=== PATIENT | female | born 1955 | race Caucasian/White ===

== ENCOUNTER → 2016-11-04 | Outpatient (CLI) | payer BC ==
[2016-11-04 16:06] VITALS: BP 144/81; PULSE 91; TEMP 98.2; BMI 33.8
--- NOTE | 2016-11-04 16:27 | P.BASOAP ---
Subjective Principal diagnosis: Malfunctioning LAP-BAND Patient was in [place] for the winter. She returns now to discuss and schedule sleeve gastrectomy. She has had weight gain. No heartburn. Her vomiting. Objective - Vital Signs Vital signs: Vital Signs Temp 98.2 F 11/04/16 16:00 Pulse 91 11/04/16 16:00 Resp BP 144/81 11/04/16 16:00 Pulse Ox Intake & Output 11/03/16 11/04/16 11/04/16 18:59 06:59 18:59 Weight 101.015 kg - Exam Abdomen: Soft, nontender, nondistended Assessment/Plan (1) Morbid obesity Narrative/Plan: Patient with a malfunctioning LAP-BAND system. The patient's preoperative consent form for sleeve gastrectomy was reviewed in detail. The patient will be set up for an upcoming upper endoscopy and dietary evaluation. We'll schedule sleeve gastrectomy to follow. Plan: Date: 11/04/16 Initial Weight: 119.295 kg Initial BMI: 39.9 Current Weight: 101.015 kg Current BMI: 33.8 Type of Surgery: Total Volume in Band: 0 Previous Volume: Volume Removed: Volume Added: Band Size:
== END | disposition home or self-care (01) ==
LOC: BARWHC3 14:18
PROVIDERS: ATTEND Surgery
DX: E66.01 Morbid (severe) obesity due to excess calories (principal); K95.09 Other complications of gastric band procedure
CPT/HCPCS: 99211

== ENCOUNTER → 2016-11-10 | Outpatient (CLI) | payer BC ==
[2016-11-10 12:30] VITALS: BMI 33.3
== END | disposition home or self-care (01) ==
LOC: BARWHC3 08:52
PROVIDERS: ATTEND Surgery
DX: E66.01 Morbid (severe) obesity due to excess calories (principal); Z71.3 Dietary counseling and surveillance
CPT/HCPCS: 97804

== ENCOUNTER 2016-11-21 08:26 | Day surgery (SDC) | payer BC ==
[2016-11-19 10:44] VITALS: BMI 32.6
[~2016-11-21 08:26] MED LIST: LACTATED RINGERS 1,000 ML IV SCH
[2016-11-21 08:56] VITALS: TEMP 98.5
[2016-11-21 08:56] LABS: Glucose,Whole Blood 172 mg/dL (75-99)
[2016-11-21] MEDS ORDERED: LIDOCAINE 1% 20 ML VIAL (10MG/ML) FOR IV START INTRADERMA ONE (08:57)
[2016-11-21] MEDS ORDERED: PROPOFOL 10 MG/ML 20 ML VIAL IV ONE (09:16)
--- NOTE | 2016-11-21 09:21 | P.GSHP ---
History of Present Illness H&P Date: 11/21/16 Chief Complaint: GERD, presurgical Patient is well-known to our service. She has a history of previous lap band placement. At the time of her most recent band adjustment the fluid present suggested the presence of a leak from the port. Patient has had progressive weight gain. She describes reflux and vomiting particularly with lap band adjustment. She is tentatively being scheduled for upcoming sleeve gastrectomy. Past Medical History Past Medical History: Diabetes Mellitus History of Any Multi-Drug Resistant Organisms: None Reported Past Surgical History: Bariatric Surgery, Section, Cholecystectomy, Hysterectomy, Orthopedic Surgery Additional Past Surgical History / Comment(s): Left total knee replacement, tailbone removed, lap band, panniculectomy, right hand basal joint surgery Past Anesthesia/Blood Transfusion Reactions: No Reported Reaction Smoking Status: Former smoker - Past Family History Mother Family Medical History: Coronary Artery Disease (CAD), Dementia, Diabetes Mellitus Additional Family Medical History / Comment(s): at age 77 Father Family Medical History: Dementia, Neurologic Disorder Additional Family Medical History / Comment(s): parkinsons. at age 82 Medications and Allergies Home Medications Medication Instructions Recorded Confirmed Type ALPRAZolam [Xanax] 0.5 mg PO DAILY PRN 02/05/16 11/21/16 History Cholecalciferol (Vitamin D3) 5,000 unit PO DAILY 02/05/16 11/21/16 History [Vitamin D3] Zolpidem Tartrate [Ambien] 5 mg PO HS PRN 02/05/16 11/21/16 History DULoxetine HCL [Cymbalta] 1 tab PO BID 11/06/16 11/21/16 History metFORMIN HCL 1,000 mg PO BID 11/19/16 11/21/16 History Allergies Allergy/AdvReac Type Severity Reaction Status Date / Time sertraline HCl [From Zoloft] AdvReac Nausea & Verified 11/21/16 08:49 Vomiting & Diarrhea Surgical - Exam Vital Signs Temp Pulse Resp BP Pulse Ox 98.5 F 96 16 150/88 96 11/21/16 08:53 11/21/16 08:53 11/21/16 08:53 11/21/16 08:53 11/21/16 08:53 Physical exam: General: Well-developed, well-nourished HEENT: Normocephalic, sclerae nonicteric Abdomen: Nontender, nondistended Extremities: No edema Neuro: Alert and oriented Results - Labs Abnormal Lab Results - Last 24 Hours (Table) 11/21/16 Range/Units 08:55 POC Glucose (mg/dL) 172 H (75-99) mg/dL Assessment and Plan (1) Morbid obesity Narrative/Plan: Will proceed with upper endoscopy at this time. Status: Acute
--- NOTE | 2016-11-21 09:32 | P.PCN ---
Date of Procedure: 11/21/16 Preoperative Diagnosis: Postoperative Diagnosis: Procedure(s) Performed: Preoperative Dx: GERD, presurgical Postoperative Dx: Gastritis, distal esophagitis Procedure: EGD with Bx Anesthesia: Sedation Endoscopist: Dr. Pena Specimens: Antrum, distal esophagus Endoscopic Procedure: The patient was on the endoscopy table in the left decubitus position. The Olympus gastroscope was inserted into the oropharynx and passed under direct visualization to the region of the third portion of the duodenum. From that point the scope was slowly withdrawn inspecting all surfaces carefully. There were no neoplastic inflammatory or polypoid lesions throughout the duodenum. The pylorus was widely patent. The stomach was carefully inspected. There was and out gastritis present. A biopsy of the antrum took place to rule out H. pylori. Retroflexion revealed a normal band plication. No erosion was seen. There was mild distal esophagitis identified. Initially it appeared there may be a short segment Iglesias's esophagus however this appeared to be less than 1 cm in length. A biopsy of the distal esophagus took place. The remainder the esophagus appear normal. The patient was then taken to the recovery room in stable condition per anesthesia guidelines. Recommendations: Await biopsy results. Will proceed with upcoming band removal and sleeve gastrectomy. Implants: Indications for Procedure: Operative Findings: Description of Procedure:
[2016-11-21 09:47] VITALS: BP 137/81; PULSE 82; RESP 18
[2016-11-21 09:50] LABS: Glucose,Whole Blood 160 mg/dL (75-99)
== END 2016-11-21 10:21 | disposition home or self-care (01) ==
LOC: ORWHC2ENDO 08:26
PROVIDERS: ATTEND Surgery
DX: Z01.818 Encounter for other preprocedural examination (principal); K29.50 Unspecified chronic gastritis without bleeding; K20.9 Esophagitis, unspecified; Z98.84 Bariatric surgery status; E11.9 Type 2 diabetes mellitus without complications; Z79.84 Long term (current) use of oral hypoglycemic drugs; Z87.891 Personal history of nicotine dependence; Z79.899 Other long term (current) drug therapy; Z88.8 Allergy status to other drugs, medicaments and biological substances
CPT/HCPCS: 88305; 88342; 43239; J2704

== ENCOUNTER → 2016-12-12 | Outpatient (CLI) | payer BC ==
[2016-12-12 08:46] LABS: Basophils % (A) 1 %; CH 31.2; CHCM 34.4; Eosinophils # (A) 0.2 k/uL (0-0.7); Eosinophils % (A) 3 %; Glucose 155 mg/dL (74-99); HCT 45.6 % (34.0-46.0); HDW 2.45; HGB 15.1 gm/dL (11.4-16.0); Luc # (Auto) 0.12; Luc % (Auto) 2; Lymphocytes # (A) 1.6 k/uL (1.0-4.8); Lymphocytes % (A) 21 %; MCH 30.2 pg (25.0-35.0); MCHC 33.2 g/dL (31.0-37.0); Mean Platelet Volume 6.5; Monocytes # (A) 0.5 k/uL (0-1.0); Monocytes % (A) 6 %; Neutrophils # (A) 5.3 k/uL (1.3-7.7); Neutrophils % (A) 68 %; RBC 5.01 m/uL (3.80-5.40); RDW 13.2 % (11.5-15.5); WBC 7.7 k/uL (3.8-10.6); WBC (Perox) 7.65
[2016-12-12 08:47] LABS: ALT 35 U/L (9-52); AST 26 U/L (14-36); Alkaline Phosphatase 82 U/L (38-126); Anion Gap 11 mmol/L; Blood Urea Nitrogen 17 mg/dL (7-17); Calcium 9.5 mg/dL (8.4-10.2); Carbon Dioxide 27 mmol/L (22-30); Chloride 102 mmol/L (98-107); Non-African American GFR(MDRD) >60 (>60 ml/min/1.73 sqM); Potassium 4.5 mmol/L (3.5-5.1); Sodium 140 mmol/L (137-145); Total Bilirubin 0.5 mg/dL (0.2-1.3); Total Protein 7.3 g/dL (6.3-8.2)
== END | disposition home or self-care (01) ==
LOC: LABPAT 08:08
PROVIDERS: ATTEND Surgery
DX: Z01.812 Encounter for preprocedural laboratory examination (principal)
CPT/HCPCS: 80053; 85025

== ENCOUNTER 2016-12-22 10:29 | Inpatient (IN) | payer BC ==
[~2016-12-22 10:29] MED LIST changes: +DEXAMETHASONE SOD PHOSPHATE 10 MG/ML 1 ML VIAL IV ONE; +ENOXAPARIN 40 MG/0.4 ML SYRINGE SQ ONE; +HYDROmorphone 1 MG/ML 1 ML SYRINGE IVP PRN; -LACTATED RINGERS 1,000 ML IV SCH; +MIDAZOLAM 2 MG/2 ML VIAL IV PRN; +ONDANSETRON 4 MG/2 ML VIAL IVP ONE; +SCOPOLAMINE 1.5MG/72HR PATCH TRANSDERM ONE; +ceFAZolin 2 GM in SODIUM CHLORIDE 0.9% 100 ML IVPB ONE
[2016-12-22] MEDS ORDERED: METHYLENE BLUE 30 MG in DEXTROSE 5% IN WATER 500 ML IRRIGATION ONE ×2 (10:49)
[2016-12-22 11:01] LABS: Glucose,Whole Blood 148 mg/dL (75-99)
[2016-12-22] MEDS: LACTATED RINGERS 1,000 ML IV SCH (11:01)
[2016-12-22] MEDS ORDERED: LIDOCAINE 1% 20 ML VIAL (10MG/ML) FOR IV START INTRADERMA ONE (11:01)
--- NOTE | 2016-12-22 11:22 | P.GSHP ---
History of Present Illness H&P Date: 12/22/16 Chief Complaint: Morbid obesity, malfunctioning LAP-BAND system Patient is well known to our service. Patient underwent initial laparoscopic banding in February 2002. Since that time the patient has had a port replacement because of a leaking LAP-BAND port. Recently at the time of a elective surgery her band was emptied and there was very little fluid in her band and the fluid had a straw-colored appearance. We suspected that the patient had another leak from her LAP-BAND port system. The patient reportedly has had weight gain and accompanying this. The patient and I have discussed the options and decided to proceed with LAP-BAND conversion to sleeve gastrectomy. The patient is not interested in gastric bypass. She has had intermittent reflux. She had a recent upper endoscopy performed showing gastritis and distal esophagitis. She has a history of previous abdominoplasty with mesh placement. Past Medical History Past Medical History: Diabetes Mellitus, Fibromyalgia Additional Past Medical History / Comment(s): varicose vein, hx pancreatitis History of Any Multi-Drug Resistant Organisms: None Reported Past Surgical History: Bariatric Surgery, Section, Cholecystectomy, Hernia Repair, Hysterectomy, Joint Replacement, Orthopedic Surgery Additional Past Surgical History / Comment(s): Left total knee replacement, tailbone removed, lap band, panniculectomy, rt hand joint surgery for basal joint disease, oophorectomy, lap band port replacement, EGD Past Anesthesia/Blood Transfusion Reactions: No Reported Reaction, Family History of Problems w/ Anesthesia Additional Past Anesthesia/Blood Transfusion Reaction / Comment(s): sister- severe PONV Smoking Status: Former smoker - Past Family History Mother Family Medical History: Coronary Artery Disease (CAD), Dementia, Diabetes Mellitus Additional Family Medical History / Comment(s): at age 77 Father Family Medical History: Dementia, Neurologic Disorder Additional Family Medical History / Comment(s): parkinsons. at age 82 Brother(s) Family Medical History: Cancer Medications and Allergies Home Medications Medication Instructions Recorded Confirmed Type ALPRAZolam [Xanax] 0.5 mg PO DAILY PRN 02/05/16 12/22/16 History Cholecalciferol (Vitamin D3) 5,000 unit PO DAILY 02/05/16 12/11/16 History [Vitamin D3] Zolpidem Tartrate [Ambien] 5 mg PO HS PRN 02/05/16 12/22/16 History DULoxetine HCL [Cymbalta] 1 tab PO BID 11/06/16 12/22/16 History metFORMIN HCL 1,000 mg PO BID 11/19/16 12/22/16 History Multivitamins, Thera [Multivitamin 1 tab PO DAILY 12/11/16 12/11/16 History (formulary)] Allergies Allergy/AdvReac Type Severity Reaction Status Date / Time No Known Allergies Allergy Verified 12/11/16 11:34 Surgical - Exam Vital Signs Temp Pulse Resp BP Pulse Ox 98.4 F 112 H 18 133/89 97 12/22/16 10:46 12/22/16 10:46 12/22/16 10:46 12/22/16 10:46 12/22/16 10:46 Physical exam: General: Well-developed, well-nourished HEENT: Normocephalic, sclerae nonicteric Abdomen: Nontender, nondistended Extremities: No edema Neuro: Alert and oriented Results - Labs Abnormal Lab Results - Last 24 Hours (Table) 12/22/16 Range/Units 10:57 POC Glucose (mg/dL) 148 H (75-99) mg/dL Assessment and Plan (1) Morbid obesity Narrative/Plan: Will proceed with lap band removal and conversion to sleeve gastrectomy at this time. Risks of bleeding, infection, stricture formation, nausea, vomiting, leak , abscess, peritonitis, fistula formation, poor weight loss, chronic reflux, mesh infection, DVT, PE, [place], and were discussed. She understands and wishes to proceed. Status: Acute
[2016-12-22] MEDS ORDERED: SUCCINYLCHOLINE CHLORIDE 100 MG/5 ML SYR IV ONE (11:36)
[2016-12-22] MEDS ORDERED: NEOSTIGMINE 1 MG/ML 10 ML VIAL ONE (11:36)
[2016-12-22] MEDS ORDERED: ROCURONIUM BROMIDE 10 MG/ML 10 ML VIAL IV ONE (11:36)
[2016-12-22] MEDS ORDERED: MIDAZOLAM 2 MG/2 ML VIAL ONE (11:36)
[2016-12-22] MEDS ORDERED: PHENYLEPHRINE-0.9% NACL SYG 1 MG/10 ML SYRINGE ONE (11:36)
[2016-12-22] MEDS ORDERED: LIDOCAINE 1% INJ 10MG/ML (20 ML MDV) ONE (11:36)
[2016-12-22] MEDS ORDERED: PROPOFOL 10 MG/ML 20 ML VIAL IV ONE (11:36)
[2016-12-22] MEDS ORDERED: fentaNYL (PF) 50 MCG/ML 2 ML AMP ONE (11:36)
[2016-12-22] MEDS ORDERED: GLYCOPYRROLATE 0.2 MG/ML 2 ML VIAL ONE (11:36)
[2016-12-22] MEDS ORDERED: BUPIVACAINE (PF) 0.25% 30 ML VIAL SQ ONE ×2 (12:15)
[2016-12-22] MEDS ORDERED: LACTATED RINGERS 1,000 ML IV ONE (13:00)
[2016-12-22] MEDS ORDERED: diphenhydrAMINE 50 MG/ML 1 ML VIAL IVP PRN (14:55)
[2016-12-22] MEDS ORDERED: HYDROmorphone 1 MG/ML 1 ML SYRINGE IVP PRN (14:55)
[2016-12-22] MEDS ORDERED: HYOSCYAMINE ORAL DROPS 1.875 MG/15 ML BOTTLE PO PRN (14:55)
[2016-12-22] MEDS ORDERED: SIMETHICONE 40 MG/0.6 ML DROPS 2,000 MG/30 ML BOTTLE PO PRN (14:55)
[2016-12-22] MEDS ORDERED: ONDANSETRON 4 MG/2 ML VIAL IVP PRN (14:55)
[2016-12-22] MEDS ORDERED: NALOXONE 0.4 MG/ML 1 ML VIAL IV PRN (14:55)
[2016-12-22] MEDS ORDERED: ACETAMINOPHEN IV (For NPO) 1,000 MG in EMPTY BAG 1 BAG IVPB ONE (14:55)
--- NOTE | 2016-12-22 15:07 | P.OP ---
Date of Procedure: 12/22/16 Preoperative Diagnosis: Postoperative Diagnosis: Procedure(s) Performed: PREOPERATIVE DIAGNOSIS: Morbid obesity, GERD, malfunctioning LAP-BAND port POSTOPERATIVE DIAGNOSIS: Same PROCEDURE: Laparoscopic sleeve gastrectomy with lysis of adhesions and lap band removal SURGEON: Becky MONTIELL: Minimal ANESTHESIA: General COMPLICATIONS: None OPERATIVE PROCEDURE: Patient was placed in the operating table in the supine position. She was placed under general anesthesia at that time. The abdomen was prepped and draped in sterile fashion after the patient was placed in lithotomy. The patient's previous lap band port incision was localized with quarter percent Marcaine. The previous incision was opened and the subcutaneous tissues were divided using electrocautery. The patient's port was easily removed. There was noted to be a slitlike hole within the tubing of the lap band port consistent with the suspected findings of a leaking system. The remaining tubing was reduced back into the perineal cavity. Through that same opening a 5 mm optical trocar was used and insufflation took place. The patient had a large amount of adhesions between the abdominal fat and the abdominal wall. This was lysed somewhat painstakingly using a combination of blunt dissection and the LigaSure device. In doing so I was able to find room to place an additional right subxiphoid 5 mm trocar, a right upper quadrant 5 mm trocar, a left upper quadrant 5 mm trocar, and a supraumbilical 15 mm trocar. All trochars were placed after localization with Marcaine and under direct visualization. The adhesions around the buckle of the band were lysed using a combination of sharp dissection and cautery. The previous plication was divided mostly sharply. The hiatus was inspected. I was not able to identify a hiatal hernia. At that point I moved to the mid aspect of the greater curvature the stomach. The short gastric vasculature was divided using a LigaSure device proximally. I then switched and divided the short gastrics distally to a 3-4 cm from the pylorus. The dissection took place up to the left diaphragmatic crura at that point. The posterior short gastrics were likewise divided using the LigaSure device. The posterior lateral aspect of the band plication was divided using sharp dissection. Once the stomach was fully mobilized the blunt tipped 40-Romansh bougie dilator was advanced into the stomach and advanced all the way to the prepyloric location. A black echelon 60 stapler was utilized and fired tangentially across the antrum taking care to avoid narrowing at the incisura angularis. The first stapling took place without seen guard. The second stapler utilized was a black load with seam guard. Next a total of 3 green echelon 60 staplers with seam guard took place proximally staying on the outer edge of our dilator. The oral gastric tube was reinserted. The stomach was insufflated with approximately 100 mL of methylene blue. No evidence of leak or obstruction was seen. The Tisseel fibrin glue was utilized however the Tisseel was noted to be leaking from the adapter at the syringe location and despite attempts at repositioning the syringe we did not have any significant volume of Tisseel left to use along the staple line. I did not feel it was appropriate to wait additional time for the Tisseel to thaw to try a second attempt. The stomach remnant was removed from the 15 mm trocar site without difficulty. The fascia at the 15 millimeters site was closed using a 0 Vicryl [id number] suture. The initial 5 mm trocar site where the port had been was also closed using a [id number] 0 Vicryl stitch. The insufflation was evacuated. The skin at all 5 incisions were closed using 4-0 Monocryl sutures. Steri-Strips and sterile dressings were then applied. DISPOSITION: Stable to recovery room Implants: Indications for Procedure: Operative Findings: Description of Procedure:
[2016-12-22 16:02] LABS: Glucose,Whole Blood 204 mg/dL (75-99)
[2016-12-22] MEDS: ALBUTEROL NEBULIZED 2.5 MG/3 ML INHALATION SCH ×3 (16:18→20:49)
[2016-12-22] MEDS: 0.9% NACL WITH KCL 20 MEQ/L 1,000 ML IV SCH ×2 (16:27→23:07)
[2016-12-22 18:03] LABS: Glucose,Whole Blood 191 mg/dL (75-99)
[2016-12-22] MEDS: INSULIN LISPRO (humaLOG) 300 UNIT/3 ML VIAL SQ SCH ×2 (18:04→21:22)
[2016-12-22 20:03] LABS: Glucose,Whole Blood 147 mg/dL (75-99)
[2016-12-23 07:05] LABS: Glucose,Whole Blood 115 mg/dL (75-99)
[2016-12-23] MEDS: 0.9% NACL WITH KCL 20 MEQ/L 1,000 ML IV SCH (07:18)
[2016-12-23] MEDS: LACTATED RINGERS 1,000 ML IV SCH (07:18)
[2016-12-23] MEDS: ALBUTEROL NEBULIZED 2.5 MG/3 ML INHALATION SCH ×4 (07:40→19:51)
[2016-12-23 07:43] LABS: Anion Gap 6 mmol/L; Blood Urea Nitrogen 9 mg/dL (7-17); Calcium 8.1 mg/dL (8.4-10.2); Carbon Dioxide 25 mmol/L (22-30); Chloride 107 mmol/L (98-107); Magnesium 1.6 mg/dL (1.6-2.3); Non-African American GFR(MDRD) >60 (>60 ml/min/1.73 sqM); Potassium 4.3 mmol/L (3.5-5.1); Sodium 138 mmol/L (137-145)
[2016-12-23 08:01] LABS: Basophils % (A) 0 %; CH 30.8; CHCM 34.2; Eosinophils % (A) 1 %; HCT 38.4 % (34.0-46.0); HDW 2.42; HGB 13.2 gm/dL (11.4-16.0); Luc # (Auto) 0.11; Luc % (Auto) 1; Lymphocytes % (A) 11 %; MCH 30.9 pg (25.0-35.0); MCHC 34.3 g/dL (31.0-37.0); MCV 90.3 fL (80.0-100.0); Mean Platelet Volume 6.4; Monocytes # (A) 0.6 k/uL (0-1.0); Monocytes % (A) 7 %; Neutrophils # (A) 7.2 k/uL (1.3-7.7); Neutrophils % (A) 81 %; RBC 4.26 m/uL (3.80-5.40); RDW 12.7 % (11.5-15.5); WBC 8.9 k/uL (3.8-10.6); WBC (Perox) 9.26
[2016-12-23] MEDS: INSULIN LISPRO (humaLOG) 300 UNIT/3 ML VIAL SQ SCH ×4 (08:21→21:19)
[2016-12-23] MEDS: ESOMEPRAZOLE 20 MG in SODIUM CHLORIDE 0.9% 50 ML IVPB SCH (08:41)
[2016-12-23] MEDS: ENOXAPARIN 40 MG/0.4 ML SYRINGE SQ SCH ×2 (08:41→23:43)
[2016-12-23] MEDS: 1: MVI, ADULT NO.4 WITH VIT K 10 ML, THIAMINE 100 MG, FOLIC ACID 1 MG, POTASSIUM CHLORID IV SCH ×12 (08:41→19:55)
[2016-12-23] MEDS ORDERED: SODIUM CHLORIDE 0.9% 1,000 ML BAG ONE (08:41)
--- NOTE | 2016-12-23 08:46 | FL ---
EXAMINATION TYPE: FL UGI DATE OF EXAM: 12/23/2016 LIMITED UGI: CLINICAL HISTORY: Morbid Obesity, history of lap band 15 years ago converted to gastric sleeve yeste rday. TECHNIQUE: Limited esophagram is performed utilizing 25 oz of Omnipaque 350. A total of 52 seconds o f fluoroscopic time was utilized during procedure. COMPARISON: None. FINDINGS: The patient swallowed contrast without difficulty or delay. Esophageal peristalsis and mo tility are satisfactory. There is good flow across diaphragmatic hiatus into proximal stomach with m inimal delay at proximal sleeve at proximal anastomosis. There is mild delay in flow through gastric sleeve into duodenal sweep at distal anastomosis. Some contrast refluxes into distal esophagus. Patie nt remains asymptomatic. There is no evidence of contrast extravasation to suggest leak. Cholecystect pamela clips are incidentally noted. IMPRESSION: No evidence of leak or significant obstruction status post gastric sleeve conversion surg cheo yesterday.
[2016-12-23] MEDS: KETOROLAC 30 MG/ML 1 ML VIAL IVP SCH ×3 (11:30→23:43)
[2016-12-23 11:44] LABS: Glucose,Whole Blood 144 mg/dL (75-99)
[2016-12-23 11:52] LABS: Hemoglobin A1C 6.8 % (4.2-6.1)
--- NOTE | 2016-12-23 12:45 | P.PN ---
Subjective Principal diagnosis: Morbid obesity Ascending well today. She complains of feeling somewhat shaky. Pain is improving. No nausea or vomiting. She is tolerating her liquids at this point. Upper GI shows no evidence of leak or obstruction. White blood cell count is normal. Objective - Vital Signs Vital signs: Vital Signs Temp 98.1 F 12/23/16 07:00 Pulse 80 12/23/16 11:28 Resp 16 12/23/16 07:00 BP 130/80 12/23/16 07:00 Pulse Ox 97 12/23/16 11:17 Intake & Output 12/22/16 12/23/16 12/23/16 18:59 06:59 18:59 Intake Total 1900 1800 Output Total 20 Balance 1880 1800 Weight 92.9 kg Intake: IV 1900 Intake, IV Titration 1800 Amount 0.9% NaCl with KCl 20 Meq 1800 /l 1,000 ml @ 150 mls/hr IV .[id number] MAGDALENA Rx#: [id number] Output: Estimated Blood Loss 20 Other: Voiding Method Toilet - Exam Abdomen: Soft, minimal distention, minimal tenderness, incisions clean and dry - Labs CBC & Chem 7: 12/23/16 07:03 12/23/16 07:03 Labs: Abnormal Lab Results - Last 24 Hours (Table) 12/22/16 12/22/16 12/22/16 Range/Units 15:58 18:00 20:02 POC Glucose (mg/dL) 204 H 191 H 147 H (75-99) mg/dL Calcium (8.4-10.2) mg/dL 12/23/16 12/23/16 12/23/16 Range/Units 06:52 07:03 11:42 POC Glucose (mg/dL) 115 H 144 H (75-99) mg/dL Calcium 8.1 L (8.4-10.2) mg/dL Assessment and Plan (1) Morbid obesity Narrative/Plan: Continue bariatric clear liquid diet. Ambulate. Repeat labs tomorrow. Status: Acute
--- NOTE | 2016-12-23 13:12 | CONS ---
DATE OF CONSULTATION: 12/22/16 REASON FOR CONSULTATION: Medical management requested by Dr. Pena. CONSULTATION: This is a pleasant 61 -year-old patient of Dr. Brito who has undergone removal of lap band and sleeve gastrectomy. Post procedure, lying in bed, some discomfort. No nausea or vomiting. The patients chronic stable medical conditions include: Diabetes mellitus Type 2, fibromyalgia, varicose veins. REVIEW OF SYSTEMS: Constitutional: Tired. HEENT: None. Respiratory: None. Cardiovascular: none. Gastrointestinal: As above. : None. Musculoskeletal: None. Dermatology: None. Hematological: None . Lymphatics: None. Past history of diabetes mellitus, Type 2, fibromyalgia, varicose veins, pancreatitis. Past surgical history of lap band, cholecystectomy, hernia repair, left total knee replacement, lap band, panniculectomy, right hand joint surgery, oophorectomy. PSYCH HISTORY: History of anxiety. SOCIAL HISTORY: The patient smoked a pack a day for 40 years . Stopped ( ) 2014. No significant alcohol history. FAMILY HISTORY: Coronary artery disease, dementia, diabetes. Home medications: 1. Metformin 1000 mg po b.i.d. 2. Ambien 5 mg q.h.s. prn 3. Multivitamin tablet po daily. 4. Cymbalta 60 mg po b.i.d. 5. Vitamin D3 5000 units po daily. 6. Xanax 0.5 mg po daily prn. 7. Prilosec 20 mg breakfast. 8. [place] 5 one to two tablets q4h prn ALLERGIES: None. On examination, vital signs on presentation: Temperature 97. Pulse 92. Respiratory rate 16. Blood pressure 130/81. Pulse ox 98% on 2 L. GENERAL APPEARANCE: Well built. BMI 30.2, Lying in bed. Not in distress. HEENT: External appearance of nose, ears and oral cavity grossly normal. NECK: JVD not raised. Mass not palpable. RESPIRATORY: Effort increased. LUNGS: Slightly decreased breath sounds. CARDIOVASCULAR: First and second sounds normal. No edema. ABDOMEN: Mild tenderness. Soft. Liver and spleen not palpable. LYMPHATICS: No lymph nodes palpable in the neck and axillae. PSYCHIATRIC: Alert and oriented times three. Mood and affect normal. NEUROLOGICAL: Pupils equal. Cranial nerves grossly intact. Power and sensation grossly intact. INVESTIGATIONS: Accu-Cheks are noted. ASSESSMENT: 1. Obesity, BMI 30.2. 2. Status post lap band removal and sleeve gastrectomy. 3. Diabetes mellitus, Type 2, on oral hypoglycemic. 4. Fibromyalgia. 5. Varicose veins. 6. Primary osteoarthritis of multiple joints. 7. Depression, anxiety, not otherwise specified. 8. Chronic insomnia from medical problems. PLAN: The patient is getting IV fluids, Venodyne boots for DVT prophylaxis. The patient is NPO. We will keep a close eye on the patient. Care was discussed with the patient. Thank you Dr. Pena. SUKHJINDER
[2016-12-23] MEDS ORDERED: ALPRAZolam 0.5 MG TAB PO PRN (13:35)
[2016-12-23] MEDS: DULoxetine HCL 60 MG CAPSULE.DR PO SCH ×2 (14:47→21:18)
[2016-12-23 15:16] VITALS: BMI 30.2
--- NOTE | 2016-12-23 15:31 | PN ---
DATE OF SERVICE: 12/23/2016 PRESENTING COMPLAINT: Abdominal surgery. INTERVAL HISTORY: Patient is status post lab band removal and sleeve gastrectomy, some abdominal pain. Patient did tolerate some liquids this morning , did not pass any flatus. Feels a bit edgy, otherwise comfortable, smiling. Review of systems done for constitutional, cardiovascular, GI, pulmonary, relevant findings as above. Current medications are reviewed. On examination, temperature 98.1, pulse 93, respirations 16, blood pressure 130/ 80, pulse ox 99% on room air. GENERAL APPEARANCE: Lying in bed, comfortable. EYES: Pupils equal, conjunctivae normal. NECK: JVD, not raised, mass not palpable. RESPIRATORY: Effort normal. Lungs are clear. Cardiovascular first and second sounds, no edema. ABDOMEN: Mild tenderness, soft. Bowel sounds are sluggish. PSYCHIATRY: Alert and oriented x3, mood and affect, slightly anxious appearing. INVESTIGATIONS: White count 8.9, hemoglobin 13.2, potassium 4.3, Accu-Cheks are noted. ASSESSMENT: 1. Obesity, body mass index of 30.2. 2. Status post lap band removal and sleeve gastrectomy. 3. Diabetes mellitus type 2, on oral hypoglycemic. 4. Fibromyalgia, chronic. 5. Lower extremity varicose veins. 6. Primary osteoarthritis of multiple joints bilaterally. 7. Depression, anxiety, not otherwise specified. 8. Chronic insomnia from medical ( ). PLAN: Care was discussed with the patient and at the bedside, also with Dr. Pena. Patient's home medications will be resumed. Will hold off patient's oral hypoglycemic, especially metformin. Care was discussed. SUKHJINDER
[2016-12-23 16:51] LABS: Glucose,Whole Blood 131 mg/dL (75-99)
[2016-12-23 20:47] LABS: Glucose,Whole Blood 126 mg/dL (75-99)
[2016-12-23] MEDS ORDERED: ACETAMINOPHEN IV (For NPO) 1,000 MG in EMPTY BAG 1 BAG IVPB STA (20:48)
[2016-12-23] MEDS: ZOLPIDEM 5 MG TAB PO PRN (21:18)
[2016-12-24 06:54] LABS: Glucose,Whole Blood 108 mg/dL (75-99)
[2016-12-24 07:57] LABS: Anion Gap 8 mmol/L; Blood Urea Nitrogen 5 mg/dL (7-17); Calcium 8.3 mg/dL (8.4-10.2); Carbon Dioxide 27 mmol/L (22-30); Chloride 107 mmol/L (98-107); Glucose 104 mg/dL (74-99); Non-African American GFR(MDRD) >60 (>60 ml/min/1.73 sqM); Potassium 4.4 mmol/L (3.5-5.1); Sodium 142 mmol/L (137-145)
[2016-12-24 08:00] LABS: Basophils % (A) 1 %; CH 31.1; CHCM 33.7; Eosinophils # (A) 0.4 k/uL (0-0.7); Eosinophils % (A) 6 %; HCT 37.9 % (34.0-46.0); HDW 2.35; HGB 12.5 gm/dL (11.4-16.0); Luc # (Auto) 0.08; Luc % (Auto) 1; Lymphocytes # (A) 1.4 k/uL (1.0-4.8); Lymphocytes % (A) 22 %; MCH 30.6 pg (25.0-35.0); MCV 92.7 fL (80.0-100.0); Mean Platelet Volume 6.7; Monocytes # (A) 0.4 k/uL (0-1.0); Monocytes % (A) 7 %; Neutrophils % (A) 63 %; RBC 4.09 m/uL (3.80-5.40); RDW 13.4 % (11.5-15.5); WBC 6.3 k/uL (3.8-10.6); WBC (Perox) 6.43
[2016-12-24] MEDS: DULoxetine HCL 60 MG CAPSULE.DR PO SCH ×2 (08:17→22:26)
[2016-12-24] MEDS: INSULIN LISPRO (humaLOG) 300 UNIT/3 ML VIAL SQ SCH ×4 (08:17→22:40)
[2016-12-24] MEDS ORDERED: SODIUM CHLORIDE 0.9% 1,000 ML BAG ONE (08:17)
[2016-12-24] MEDS: ESOMEPRAZOLE 20 MG in SODIUM CHLORIDE 0.9% 50 ML IVPB SCH (08:17)
[2016-12-24] MEDS: ENOXAPARIN 40 MG/0.4 ML SYRINGE SQ SCH ×2 (08:17→22:26)
[2016-12-24] MEDS: 1: MVI, ADULT NO.4 WITH VIT K 10 ML, THIAMINE 100 MG, FOLIC ACID 1 MG, POTASSIUM CHLORID IV SCH ×12 (08:17→20:08)
[2016-12-24] MEDS: KETOROLAC 30 MG/ML 1 ML VIAL IVP SCH ×4 (08:18→23:57)
[2016-12-24] MEDS: LACTATED RINGERS 1,000 ML IV SCH (08:46)
[2016-12-24] MEDS: ALBUTEROL NEBULIZED 2.5 MG/3 ML INHALATION SCH ×4 (08:56→19:29)
[2016-12-24 11:14] LABS: Glucose,Whole Blood 113 mg/dL (75-99)
--- NOTE | 2016-12-24 11:45 | P.PN ---
Subjective Principal diagnosis: Morbid obesity Patient had a bad headache last night. Abdominal pain is improved. She is not drinking much. No dysphagia. White blood cell count today normal. Objective - Vital Signs Vital signs: Vital Signs Temp 98.4 F 12/24/16 07:00 Pulse 92 12/24/16 09:10 Resp 14 12/24/16 07:00 BP 138/74 12/24/16 07:00 Pulse Ox 94 L 12/24/16 07:00 Intake & Output 12/23/16 12/24/16 12/24/16 18:59 06:59 18:59 Intake Total 1021.2 1300 180 Balance 1021.2 1300 180 Weight 92.9 kg Intake: Intake, IV Titration 1021.2 1300 Amount 0.9% NaCl with KCl 20 Meq 1200 /l 1,000 ml @ 100 mls/hr IV .BY DURATION MAGDALENA Rx#: [id number] ACETAMINOPHEN IV (For NPO 100 ) 1,000 mg In Empty Bag 1 bag @ 400 mls/hr IVPB ONCE STA Rx#:[id number] Mvi, Adult No.4 with Vit 1021.2 K 10 ml Thiamine 100 mg Folic Acid 1 mg Potassium Chloride 20 meq In Sodium Chloride 0.9% 1, 000 ml @ 100 mls/hr IV . BY DURATION MAGDALENA Rx#: [id number] Oral 180 Other: Voiding Method Toilet # Voids 2 1 - Exam Abdomen: Soft, mild tenderness at incision sites, incisions clean and dry - Labs CBC & Chem 7: 12/24/16 07:19 12/24/16 07:19 Labs: Abnormal Lab Results - Last 24 Hours (Table) 12/23/16 12/23/16 12/23/16 Range/Units 07:03 11:42 16:46 BUN (7-17) mg/dL Glucose (74-99) mg/dL POC Glucose (mg/dL) 144 H 131 H (75-99) mg/dL Hemoglobin A1c 6.8 H (4.2-6.1) % Calcium (8.4-10.2) mg/dL 12/23/16 12/24/16 12/24/16 Range/Units 20:04 06:47 07:19 BUN 5 L (7-17) mg/dL Glucose 104 H (74-99) mg/dL POC Glucose (mg/dL) 126 H 108 H (75-99) mg/dL Hemoglobin A1c (4.2-6.1) % Calcium 8.3 L (8.4-10.2) mg/dL 12/24/16 Range/Units 11:06 BUN (7-17) mg/dL Glucose (74-99) mg/dL POC Glucose (mg/dL) 113 H (75-99) mg/dL Hemoglobin A1c (4.2-6.1) % Calcium (8.4-10.2) mg/dL Assessment and Plan (1) Morbid obesity Narrative/Plan: Continue bariatric clear liquids. Increase activity levels. Possible discharge tomorrow. Status: Acute
--- NOTE | 2016-12-24 12:46 | PN ---
DATE OF SERVICE: 12/24/16 PRESENTING COMPLAINT: Abdominal surgery. INTERVAL HISTORY: The patient is status post lap band removal and sleeve gastrectomy, doing better, tolerating clear liquid diet. Has not passed flatus. Has been out of bed. The patients antidepressant started yesterday including Xanax. The patient feels much more relaxed today, has been out of bed. Review of systems done for constitutional, cardiovascular, GI, pulmonary, relevant findings as above. Current medications are reviewed. On examination, temperature 98.4, pulse 98. Respirations 14. Blood pressure 130/74. Pulse ox 94% on room air. General appearance sitting up in bed, comfortable. Eyes: Pupils equal, conjunctivae normal. Neck JVD not raised. Mass not palpable. Respiratory effort normal.. Lungs clear. Cardiovascular : First and second sounds normal. No edema. Abdomen soft, mild tenderness. Bowel sounds low. Psychiatric: Alert and oriented times three. Mood and affect normal. Investigations: White count 6.3. Hemoglobin 12.5. potassium 4.4. BUN 5, creatinine 0.67. Accu-Cheks noted. ASSESSMENT: 1. Obesity, BMI 30.2. 2. Status post lap band removal and sleeve gastrectomy. 3. Diabetes mellitus, type 2, sugars are controlled off hypoglycemic. 4. Fibromyalgia, chronic. 5. Lower extremity varicose veins. 6. Primary osteoarthritis of multiple joints bilaterally. 7. Depression/anxiety, not otherwise specified. 8. Chronic insomnia from medical problems. PLAN: Care was discussed with the patient. Overall doing better. Discharge planning per Dr. Pena. Care was discussed with the patient. Continue to hold off oral hypoglycemics. MTDD
[2016-12-24 18:06] LABS: Glucose,Whole Blood 155 mg/dL (75-99)
[2016-12-24 20:12] LABS: Glucose,Whole Blood 103 mg/dL (75-99)
[2016-12-24] MEDS: ZOLPIDEM 5 MG TAB PO PRN (22:26)
[2016-12-25] MEDS: 1: MVI, ADULT NO.4 WITH VIT K 10 ML, THIAMINE 100 MG, FOLIC ACID 1 MG, POTASSIUM CHLORID IV SCH ×18 (01:17→17:33)
[2016-12-25] MEDS: LACTATED RINGERS 1,000 ML IV SCH (04:16)
[2016-12-25] MEDS: KETOROLAC 30 MG/ML 1 ML VIAL IVP SCH (05:14)
[2016-12-25] MEDS: ALBUTEROL NEBULIZED 2.5 MG/3 ML INHALATION SCH ×4 (06:59→20:29)
[2016-12-25] MEDS: INSULIN LISPRO (humaLOG) 300 UNIT/3 ML VIAL SQ SCH ×3 (07:44→17:33)
[2016-12-25 07:45] LABS: Glucose,Whole Blood 159 mg/dL (75-99)
[2016-12-25] MEDS ORDERED: SODIUM CHLORIDE 0.9% 1,000 ML BAG ONE (08:14)
[2016-12-25] MEDS: ESOMEPRAZOLE 20 MG in SODIUM CHLORIDE 0.9% 50 ML IVPB SCH (08:19)
[2016-12-25] MEDS: ENOXAPARIN 40 MG/0.4 ML SYRINGE SQ SCH (08:19)
[2016-12-25] MEDS: DULoxetine HCL 60 MG CAPSULE.DR PO SCH (08:19)
[2016-12-25 11:34] LABS: Glucose,Whole Blood 103 mg/dL (75-99)
--- NOTE | 2016-12-25 13:23 | PN ---
DATE OF SERVICE: 12/25/2016 PRESENTING COMPLAINT: Abdominal surgery. INTERVAL HISTORY: Patient is status post lap band removal and sleeve gastrectomy, doing well. Feels stable, ( ), tolerating clear liquids, has passed a lot of flatus, up and out of bed, no abdominal pain. Review of systems done for constitutional, cardiovascular, GI, pulmonary; relevant findings as above. Current medications are reviewed. On examination, temperature 98.3, pulse 56, respirations 12, blood pressure 152/ 81, pulse ox 97% on room air. GENERAL APPEARANCE: Lying in bed, comfortable. EYES: Pupils equal, conjunctivae normal. NECK: JVD not raised, mass not palpable. RESPIRATORY: Effort normal, lungs are clear. CARDIOVASCULAR: First and second sound are normal, no edema. ABDOMEN: Soft, minimal tenderness. PSYCH: Alert and oriented x3. Mood and affect was normal. INVESTIGATIONS: Accu-Cheks are noted, 113, 159, 103. ASSESSMENT: 1. Obesity, body mass index of 30.2. 2. Status post lap band removal and sleeve gastrectomy. 3. Diabetes mellitus type 2. Sugars are respectable, off hypoglycemic. 4. Fibromyalgia, chronic. 5. Lower extremity varicose vein. 6. Primary osteoarthritis in multiple joints, bilateral. 7. Depression, anxiety, not otherwise specified. 8. Chronic insomnia from medical problems. PLAN: Care was discussed with the patient. Patient told to keep her off metformin, check her Accu-Cheks 3 times a day and the follow up with the family doctor in a weeks' time. Thank you, Dr. Pena. SUKHJINDER
[2016-12-25 16:02] VITALS: BP 138/84; PULSE 80; RESP 16; TEMP 98.2
[2016-12-25 17:00] LABS: Glucose,Whole Blood 105 mg/dL (75-99)
--- NOTE | 2016-12-25 18:20 | P.DS ---
Providers Date of admission: 12/22/16 10:29 Expected date of discharge: 12/25/16 Attending physician: Cecil Pena Consults: 12/22/16 16:49 Consult Physician Routine Consulting Provider: Bill Tillman Consult Reason/Comments: medical management Do you want consulting provider notified?: Yes Primary care physician: Stated None - Discharge Diagnosis(es) (1) Morbid obesity Patient admitted for elective sleeve gastrectomy with band removal. Patient has done well postoperatively. Her postop upper GI shows no evidence of leak or obstruction. Her labs have been normal. She is tolerating good volumes of liquids proximally 40 ounces today. Pain is minimal. She is anxious to go home today. She is ambulating in the hallways. Incisions are clean and dry. No significant abdominal tenderness. Patient will follow-up with me in the office in one week. Current Visit: No Status: Acute Plan - Discharge Summary New Discharge Prescriptions: New Hydrocodone/Acetaminophen [Hendrix 5-325] 1 - 2 each PO Q4HR PRN #30 tab PRN Reason: pain Omeprazole [PriLOSEC] 20 mg PO AC-BRKFST #90 cap Continue Zolpidem Tartrate [Ambien] 5 mg PO HS PRN PRN Reason: Insomnia ALPRAZolam [Xanax] 0.5 mg PO DAILY PRN PRN Reason: Anxiety DULoxetine HCL [Cymbalta] 60 mg PO BID Multivitamins, Thera [Multivitamin (formulary)] 1 tab PO DAILY Cholecalciferol [Vitamin D3] 5,000 unit PO DAILY Discontinued metFORMIN HCL 1,000 mg PO BID Discharge Medication List ALPRAZolam [Xanax] 0.5 mg PO DAILY PRN 02/05/16 [History] Zolpidem Tartrate [Ambien] 5 mg PO HS PRN 02/05/16 [History] DULoxetine HCL [Cymbalta] 60 mg PO BID 11/06/16 [History] Multivitamins, Thera [Multivitamin (formulary)] 1 tab PO DAILY 12/11/16 [History ] Cholecalciferol [Vitamin D3] 5,000 unit PO DAILY 12/22/16 [History] Hydrocodone/Acetaminophen [Hendrix 5-325] 1 - 2 each PO Q4HR PRN #30 tab 12/22/16 [Rx] Omeprazole [PriLOSEC] 20 mg PO AC-BRKFST #90 cap 12/22/16 [Rx] Follow up Appointment(s)/Referral(s): Cecil Pena MD [Medical Doctor] - 1 Week ([facility] please call and make an appointment ) Patient Instructions/Handouts: Laparoscopic Sleeve Gastrectomy (DC)
== END 2016-12-25 18:10 | disposition home or self-care (01) | DRG 909 ==
LOC: 2ORWHC 10:29 → 3SUR 14:59
PROVIDERS: ADMIT Surgery; ATTEND Surgery
PROC: 0DB64Z3 Excision of Stomach, Percutaneous Endoscopic Approach, Vertical (ICD-10-PCS; principal; 2016-12-22 12:00)
PROC: 0DP64CZ Removal of Extraluminal Device from Stomach, Percutaneous Endoscopic Approach (ICD-10-PCS; 2016-12-22 12:00)
DX: T85.598A Other mechanical complication of other gastrointestinal prosthetic devices, implants and grafts, initial encounter (principal); E66.01 Morbid (severe) obesity due to excess calories; F32.9 Major depressive disorder, single episode, unspecified; F41.9 Anxiety disorder, unspecified; F51.04 Psychophysiologic insomnia; I83.90 Asymptomatic varicose veins of unspecified lower extremity; K21.9 Gastro-esophageal reflux disease without esophagitis; M15.9 Polyosteoarthritis, unspecified; M79.7 Fibromyalgia; K20.9 Esophagitis, unspecified; K29.70 Gastritis, unspecified, without bleeding; E11.9 Type 2 diabetes mellitus without complications; Z68.30 Body mass index [BMI] 30.0-30.9, adult; Z79.84 Long term (current) use of oral hypoglycemic drugs; Z79.899 Other long term (current) drug therapy; Z87.891 Personal history of nicotine dependence; Z96.652 Presence of left artificial knee joint; Z82.49 Family history of ischemic heart disease and other diseases of the circulatory system; Y73.1 Therapeutic (nonsurgical) and rehabilitative gastroenterology and urology devices associated with adverse incidents
CPT/HCPCS: 74240; 80048; 80051; 82310; 82565; 83036; 83735; 84100; 84520; 85025; 88307; 94640

== ENCOUNTER → 2016-12-30 | Outpatient (CLI) | payer BC ==
[2016-12-30 15:13] VITALS: BP 140/75; PULSE 94; TEMP 97.4; BMI 31.4
--- NOTE | 2016-12-30 16:18 | P.BASOAP ---
Subjective Principal diagnosis: Morbid obesity Patient doing well today. Surgery was 1 week ago. She has no pain. No nausea or vomiting. Denies heartburn. She is hungry. She is taking an adequate protein and liquids at this time. Weight actually has gone up by 2 pounds. Objective - Vital Signs Vital signs: Vital Signs Temp 97.4 F L 12/30/16 15:10 Pulse 94 12/30/16 15:10 Resp BP 140/75 12/30/16 15:10 Pulse Ox Intake & Output 12/29/16 12/30/16 12/30/16 18:59 06:59 18:59 Weight 93.621 kg - Exam Abdomen: Soft, nontender, nondistended, incision clean dry Assessment/Plan (1) Morbid obesity Narrative/Plan: Patient doing well postoperatively. Continue dietary and exercise regimen. Follow-up evaluation 2 weeks. Plan: Date: 12/30/16 Initial Weight: 119.295 kg Initial BMI: 39.9 Current Weight: 93.621 kg Current BMI: 31.4 Type of Surgery: Total Volume in Band: 0 Previous Volume: Volume Removed: Volume Added: Band Size:
== END | disposition home or self-care (01) ==
LOC: BARWHC3 14:43
PROVIDERS: ATTEND Surgery
DX: E66.01 Morbid (severe) obesity due to excess calories (principal)
CPT/HCPCS: 97803; 99211

== ENCOUNTER → 2017-01-13 | Outpatient (CLI) | payer BC ==
[2017-01-13 15:12] VITALS: BP 135/78; PULSE 79; RESP 20; TEMP 98.3; BMI 30.3
--- NOTE | 2017-01-13 15:56 | P.BASOAP ---
Subjective Principal diagnosis: Morbid obesity Patient is 3 weeks post sleeve gastrectomy. In the last 2 weeks she has lost over 8 pounds. Still hungry at times. Some constipation taking milk of magnesia. Denies reflux. No dysphagia symptoms. No vomiting. No pain. Objective - Vital Signs Vital signs: Vital Signs Temp 98.3 F 01/13/17 15:02 Pulse 79 01/13/17 15:02 Resp 20 01/13/17 15:02 BP 135/78 01/13/17 15:02 Pulse Ox Intake & Output 01/12/17 01/13/17 01/13/17 18:59 06:59 18:59 Weight 90.537 kg - Exam Abdomen: Soft, nontender, nondistended, incisions clean and dry Assessment/Plan (1) Morbid obesity Narrative/Plan: Continue advancing diet gradually. Increase activity levels as well. Follow- up evaluation one month. 1 month lab work slip was provided. Plan: Date: 01/13/17 Initial Weight: 119.295 kg Initial BMI: 39.9 Current Weight: 90.537 kg Current BMI: 30.3 Type of Surgery: Total Volume in Band: 0 Previous Volume: Volume Removed: Volume Added: Band Size:
== END | disposition home or self-care (01) ==
LOC: BARWHC3 14:49
PROVIDERS: ATTEND Surgery
DX: E66.01 Morbid (severe) obesity due to excess calories (principal)
CPT/HCPCS: 97803; 99211

== ENCOUNTER → 2017-01-30 | Outpatient (CLI) | payer BC ==
[2017-01-30 10:19] LABS: CH 30.5; CHCM 33.5; HCT 44.9 % (34.0-46.0); HDW 2.39; MCH 30.5 pg (25.0-35.0); MCHC 33.4 g/dL (31.0-37.0); MCV 91.4 fL (80.0-100.0); Mean Platelet Volume 6.3; RBC 4.91 m/uL (3.80-5.40); RDW 12.6 % (11.5-15.5); WBC 6.4 k/uL (3.8-10.6)
[2017-01-30 10:37] LABS: ALT 50 U/L (9-52); AST 29 U/L (14-36); Alkaline Phosphatase 89 U/L (38-126); Anion Gap 9 mmol/L; Blood Urea Nitrogen 13 mg/dL (7-17); Calcium 9.7 mg/dL (8.4-10.2); Carbon Dioxide 28 mmol/L (22-30); Chloride 102 mmol/L (98-107); Glucose 152 mg/dL (74-99); Iron 83 ug/dL (37-170); Non-African American GFR(MDRD) >60 (>60 ml/min/1.73 sqM); Sodium 139 mmol/L (137-145); Total Bilirubin 0.5 mg/dL (0.2-1.3); Total Protein 7.1 g/dL (6.3-8.2)
[2017-01-30 11:30] LABS: Vitamin B12 >1000 pg/mL (239-931)
== END | disposition home or self-care (01) ==
LOC: LABWHC1 09:21
PROVIDERS: ATTEND Surgery
DX: D50.8 Other iron deficiency anemias (principal); E66.01 Morbid (severe) obesity due to excess calories; E55.9 Vitamin D deficiency, unspecified
CPT/HCPCS: 36415; 80053; 82306; 82607; 83540; 84134; 84425; 85027

== ENCOUNTER → 2017-02-17 | Outpatient (CLI) | payer BC ==
--- NOTE | 2017-02-17 14:09 | P.BASOAP ---
Subjective Principal diagnosis: Morbid obesity Patient doing well today. 10 pounds of weight loss since last visit. No reflux or heartburn. She still is hungry at times. Her labs checked at the one month were good. Her B12 somewhat high. She will be taking her B12 every other day now. Protein intake approximately 55-60 per day. He is leaving for [place] soon and will be back until September. Objective - Vital Signs Vital signs: Vital Signs Temp 98.2 F 02/17/17 13:24 Pulse 92 02/17/17 13:24 Resp BP 127/86 02/17/17 13:24 Pulse Ox Intake & Output 02/16/17 02/17/17 02/17/17 18:59 06:59 18:59 Weight 86.137 kg - Exam Abdomen: Soft, nontender, nondistended Assessment/Plan (1) Morbid obesity Narrative/Plan: Will increase protein intake. Check 3 months labs in mid-March while out of [facility] [address]. Patient will follow-up with us in September after returning to [facility] [address]. Take B12 every other day. Plan: Date: 02/17/17 Initial Weight: 119.295 kg Initial BMI: 39.9 Current Weight: 86.137 kg Current BMI: 28.0 Type of Surgery: Total Volume in Band: 0 Previous Volume: Volume Removed: Volume Added: Band Size:
== END | disposition home or self-care (01) ==
CPT/HCPCS: 97803; 99211

== ENCOUNTER → 2018-10-26 | Outpatient (CLI) | payer BC ==
[2018-10-26 14:04] LABS: HCT 42.6 % (34.0-46.0); HGB 13.7 gm/dL (11.4-16.0); MCHC 32.1 g/dL (31.0-37.0); MCV 90.5 fL (80.0-100.0); Mean Platelet Volume 6.1; Platelet Count 439 k/uL (150-450); RBC 4.71 m/uL (3.80-5.40); WBC 7.1 k/uL (3.8-10.6)
[2018-10-26 14:12] LABS: INR 0.9 (<1.2); Partial Thromboplastin Time 22.5 sec (22.0-30.0); Prothrombin Time 9.8 sec (9.0-12.0)
[2018-10-26 14:16] LABS: ALT 10 U/L (9-52); AST 17 U/L (14-36); Albumin 4.2 g/dL (3.5-5.0); Alkaline Phosphatase 82 U/L (38-126); Anion Gap 7 mmol/L; Blood Urea Nitrogen 14 mg/dL (7-17); Calcium 9.5 mg/dL (8.4-10.2); Carbon Dioxide 29 mmol/L (22-30); Chloride 103 mmol/L (98-107); Glucose 103 mg/dL (74-99); Potassium 5.2 mmol/L (3.5-5.1); Sodium 139 mmol/L (137-145); Total Bilirubin 0.4 mg/dL (0.2-1.3); Total Protein 6.9 g/dL (6.3-8.2)
[2018-10-26 14:36] LABS: Appearance,Urine Cloudy (Clear); Bilirubin,Urine Negative (Negative); Blood,Urine Negative (Negative); Color,Urine Yellow; Glucose,Urine (UA) Negative (Negative); Ketones,Urine Negative (Negative); Leukocyte Esterase,Urine Moderate (Negative); Mucus,Urine Many /hpf; Nitrite,Urine Negative (Negative); PH, Urine 6.5 (5.0-8.0); Protein,Urine Trace (Negative); RBC,Urine 7 /hpf (0-5); Specific Gravity,Urine 1.026 (1.001-1.035); Squamous Epithelial Cell,Urine 1 /hpf (0-4); Urobilinogen,Urine <2.0 mg/dL (<2.0); WBC,Urine 4 /hpf (0-5)
== END | disposition home or self-care (01) ==
LOC: LABPAT 12:08
PROVIDERS: ATTEND Orthopaedic Surgery
DX: Z01.818 Encounter for other preprocedural examination (principal); Z01.812 Encounter for preprocedural laboratory examination; M17.11 Unilateral primary osteoarthritis, right knee
CPT/HCPCS: 36415; 80053; 81001; 85027; 85610; 85730; 87070; 93005

== ENCOUNTER 2018-11-15 05:30 | Inpatient (IN) | payer BC ==
[~2018-11-15 05:30] MED LIST changes: +ACETAMINOPHEN TAB 500 MG TAB PO ONE; -DEXAMETHASONE SOD PHOSPHATE 10 MG/ML 1 ML VIAL IV ONE; -ENOXAPARIN 40 MG/0.4 ML SYRINGE SQ ONE; -HYDROmorphone 1 MG/ML 1 ML SYRINGE IVP PRN; +MELOXICAM 7.5 MG TAB PO ONE; -MIDAZOLAM 2 MG/2 ML VIAL IV PRN; -ONDANSETRON 4 MG/2 ML VIAL IVP ONE; -SCOPOLAMINE 1.5MG/72HR PATCH TRANSDERM ONE; +TRANEXAMIC ACID 1,000 MG in SODIUM CHLORIDE 0.9% 100 ML IVPB ONE; -ceFAZolin 2 GM in SODIUM CHLORIDE 0.9% 100 ML IVPB ONE; +ceFAZolin IN SWFI 2 GM/20 ML SYRINGE IVP ONE
[2018-11-15] MEDS ORDERED: MIDAZOLAM 2 MG/2 ML VIAL IV PRN (05:31)
[2018-11-15] MEDS ORDERED: fentaNYL (PF) 50 MCG/ML 2 ML AMP IV PRN (05:31)
[2018-11-15] MEDS ORDERED: ONDANSETRON 4 MG/2 ML VIAL IVP ONE (05:31)
[2018-11-15] MEDS ORDERED: DEXAMETHASONE SOD PHOSPHATE 10 MG/ML 1 ML VIAL IV ONE (05:31)
[2018-11-15] MEDS ORDERED: LIDOCAINE 1% 20 ML VIAL (10MG/ML) FOR IV START INTRADERMA PRN (05:31)
[2018-11-15 06:12] LABS: Glucose,Whole Blood 130 mg/dL (75-99)
[2018-11-15] MEDS: LACTATED RINGERS 1,000 ML IV SCH (06:13)
[2018-11-15] MEDS ORDERED: ROPIVACAINE 246.25 MG, EPINEPHrine 0.5 MG, KETOROLAC 30 MG, cloNIDine HCL/PF 80 MCG, WA... MISCELLANE ONE ×5 (06:14)
[2018-11-15] MEDS ORDERED: PHENYLEPHRINE-0.9% NACL SYG 1 MG/10 ML SYRINGE ONE (06:53)
[2018-11-15] MEDS ORDERED: PROPOFOL 10 MG/ML 20 ML VIAL IV ONE (06:53)
[2018-11-15] MEDS ORDERED: TRANEXAMIC ACID 1,000 MG/10 ML VIAL ONE (06:53)
[2018-11-15] MEDS ORDERED: SODIUM CHLORIDE 0.9% 100 ML BAG ONE (06:53)
[2018-11-15] MEDS ORDERED: MIDAZOLAM 2 MG/2 ML VIAL ONE (06:53)
[2018-11-15] MEDS ORDERED: fentaNYL (PF) 50 MCG/ML 2 ML AMP ONE (06:53)
[2018-11-15] MEDS ORDERED: HYDROcodone/APAP 5-325MG 1 EACH TAB PO PRN ×2 (06:59)
[2018-11-15] MEDS ORDERED: MAGNESIUM HYDROXIDE 2,400 MG/10 ML CUP PO PRN (06:59)
[2018-11-15] MEDS ORDERED: NA PHOS,M-B/NA PHOS,DI-BA 133 ML ENEMA RECTAL PRN (06:59)
[2018-11-15] MEDS ORDERED: HYDROmorphone 1 MG/ML 1 ML SYRINGE IVP PRN (06:59)
[2018-11-15] MEDS ORDERED: NALOXONE 0.4 MG/ML 1 ML VIAL IV PRN (06:59)
[2018-11-15] MEDS ORDERED: DIAZEPAM 5 MG TAB PO PRN (06:59)
[2018-11-15] MEDS ORDERED: HYDROmorphone 0.5 MG/0.5 ML SYRINGE IVP PRN (06:59)
[2018-11-15] MEDS ORDERED: hydrOXYzine PAMOATE 25 MG CAP PO PRN (06:59)
[2018-11-15] MEDS ORDERED: BISACODYL 10 MG SUPP RECTAL PRN (06:59)
[2018-11-15] MEDS ORDERED: ONDANSETRON 4 MG/2 ML VIAL IVP PRN (06:59)
[2018-11-15] MEDS ORDERED: ceFAZolin 3,000 MG in SODIUM CHLORIDE 0.9% IRRIGATIO 3,000 ML IRRIGATION ONE (07:07)
[2018-11-15] MEDS ORDERED: LACTATED RINGERS 1,000 ML IV ONE (07:46)
--- NOTE | 2018-11-15 09:00 | P.OP ---
Date of Procedure: 11/15/18 Preoperative Diagnosis: Severe osteoarthritis right knee with a valgus deformity Postoperative Diagnosis: Severe osteoarthritis the right knee with a valgus deformity Procedure(s) Performed: Right total knee arthroplasty Implants: Ceja and Nephew Journey II CR Oxinium cruciate retaining femoral component size 6, right Ce[employer] Journey right nonporous tibial baseplate size 6 Ce[employer]hew Journey II, XLPE Deep Dished articular insert, size 9 mm, Size 5- 6 right [employer] Journey BCS resurfacing oval patellar component, 32 mm All components were cemented using Palacos R bone cement.. The articulation is Oxinium on polyethylene. Anesthesia: spinal Surgeon: Alirio Don Operations Assistant #1: Carmita Allen Estimated Blood Loss (ml): 50 Pathology: other (Bone and cartilage) Condition: stable Disposition: PACU Indications for Procedure: After failure of conservative treatment we discussed the surgical and nonsurgical treatment options at length. Patient wishes to proceed with a total knee arthroplasty. Complications specific to this procedure were discussed at length, including but not limited to infection, bleeding, stiffness, and nerve injury. Patient is aware of all these complications and informed consent was obtained Operative Findings: The operative findings are consistent with severe osteoarthritis of the right knee with a valgus deformity Description of Procedure: Patient was seen in the preoperative area consent was reviewed and operative site was marked with a skin marker. An adductor canal pain catheter was placed by anesthesia in the preoperative area. Patient was then brought to the operating room and given preoperative antibiotics intravenously. A spinal anesthetic was administered by the anesthesia department. A tourniquet was placed on the upper thigh and the lower extremity was prepped and draped in usual sterile fashion. A gram of transexamic acid was given. A universal timeout was then performed which confirmed the patient's name, surgical site, ALLERGIES, and consent. The lower extremity was then exsanguinated and tourniquet was inflated to 250 mmHg. A standard and anterior midline approach to the knee was performed. The skin and subcutaneous tissue was dissected down to the patellar tendon. A medial parapatellar arthrotomy was then performed. The knee was then extended, the patellar was everted, and the knee was again flexed. Anterior horns of both menisci were excised, and a release was performed to the posterior medial aspect of the knee. On gross visual inspection, there was complete loss of articular cartilage in the medial and patellofemoral joint spaces. There was also significant cartilage damage in the lateral compartment. There were multiple periarticular osteophytes which were then removed with a Ronguer. The femoral canal was then opened with the appropriate drill, and the intramedullary femoral cutting guide was then placed and set for 5 of valgus. The distal femoral cutting block was then pinned in place, and the distal femur was then cut. The cutting block was then removed and the cut was checked for flatness. Next, the sizing guide was then placed and set for 3 external rotation based off of the epicondylar axis and Whitesides line. After the femur was sized, the appropriate 4-in-1 cutting block was then pinned in place. The anterior con dyles were cut without notching. The posterior and chamfer cuts were performed while protecting the collateral ligaments. The cutting block was then removed, and the femoral canal was plugged with autologous bone. Attention was then directed to the tibia. The remaining ACL was removed with a Ronguer, and the tibia was then gently subluxed forward with a large bent knee retractor. Any remaining menisci was excised. The posterior lateral corner was cauterized in order to cauterize the lateral geniculate artery. The extra medullary tibial cutting guide was then placed, set for the appropriate rotation, slope, and depth of resection. The proximal tibia cutting guide was then pinned in place. Proximal tibia was then cut and sized. Next trials were then placed with the appropriate-sized insert. The knee was able to fully extend and flex to 130 and was stable throughout all range of motion. The knee was then extended, patella everted. Patella was then measured, and then using an osteotomy guide, the patella was cut at the appropriate level. The patella was then measured and drilled and the patella trial was then placed. The knee was then taken through range of motion with the patella trial and the patella tracked normally. The knee was then extended patella trial was then removed and the patella was everted. Knee was then flexed and lug holes were drilled through the femoral trial and the femoral trial was then removed. The tibial was then exposed, and the tibial broach guide was then pinned in place after it was set for the appropriate rotation to allow for the most coverage without overhang. The tibia was then reamed and broached. The cut surfaces of bone were then irrigated with pulsatile lavage. The posterior structures were injected with the ropivacaine solution. The knee was also irrigated with Irrisept solution. The components were then opened, the cement was mixed, and the components were then cemented in place. The cement was allowed to harden with the knee in full extension. While the cement was hardening, the remaining soft tissues were then injected with a ropivacaine solution, which consisted of 246.25 mg of ropivacaine, 0.5 mg of epinephrine, 30 mg of Toradol, 80 g of clonidine, and 48.45 mL of sterile water, for a total of 100 mL of fluid injected. After the cemented hardened. The tourniquet was released, and hemostasis was obtained. A second gram of transexamic acid was given. The knee was again irrigated. The knee was again taken through range of motion and found to be stable throughout all range of motion of 0-130, and the patella tracked normally. The fascia was then closed with #2 strata fix suture. The subcutaneous tissue was closed with 3-0 Vicryl and 3-0 strata fix. Dermabond glue was used for the skin and placed with the knee in flexion. The patient was placed in a sterile silver dressing. Patient was then transferred to recovery room in stable condition. The assistant grocery DANA Lainez was required due the complexity surgery and the need for a skilled surgical garment fitter. She assisted in positioning, draping, retraction, and closure of the wound.
[2018-11-15] MEDS ORDERED: ROPIVACAINE 1,100 MG, SODIUM CHLORIDE 0.9% 500 ML 330 ML MISCELLANE PRN ×2 (09:08)
--- NOTE | 2018-11-15 09:23 | XR ---
EXAMINATION TYPE: XR knee limited RT DATE OF EXAM: 11/15/2018 COMPARISON: NONE HISTORY: 63-year-old female evaluation for postoperative abnormality and alignment TECHNIQUE: Single frontal view FINDINGS: Image shows placement of right total knee arthroplasty. Both distal femoral and proximal tibial compo nents of the prosthesis appear well seated without periprosthetic fracture. Alignment grossly anatomi c. Anterior soft tissue swelling with scattered soft tissue air as well as joint effusion and intra-a rticular air related to recent operation. IMPRESSION: Uncomplicated postoperative appearance right knee total arthroplasty.
--- NOTE | 2018-11-15 09:48 | P.ANPRN ---
Procedure Note - Anesthesia - Nerve Block Performed Right Adductor Canal Infusion Time Out Performed: Yes Date of Procedure: 11/15/18 Location of Patient Procedure: PreOp Indication: Acute Post-Operative Pain, Requested by physician Specifically requested for management of pain by DrBurt: Alirio Don Sedation Type: Sedate with meaningful contact maintained Preparation: Sterile Prep Position: Supine Catheter Depth at Skin (cm): 7 Catheter: Indwelling Needle Types: Pajunk Needle Gauge: 20 Technique: Ultrasound Injectate: 0.5% Ropivacaine (see comment for volume) (20) Blood Aspirated: No Pain Paresthesia on Injection Noted: No Resistance on Injection: Normal Events: Uneventful and Well Tolerated
[2018-11-15 10:06] LABS: Glucose,Whole Blood 182 mg/dL (75-99)
[2018-11-15 10:38] VITALS: BMI 29.6
[2018-11-15 12:06] LABS: Glucose,Whole Blood 164 mg/dL (75-99)
[2018-11-15] MEDS ORDERED: ACETAMINOPHEN TAB 500 MG TAB PO PRN (12:25)
[2018-11-15] MEDS: DULoxetine HCL 60 MG CAPSULE.DR PO SCH ×2 (12:48→19:51)
[2018-11-15] MEDS: CYANOCOBALAMIN 500 MCG TAB PO SCH (12:48)
[2018-11-15] MEDS: metFORMIN 500 MG TAB PO SCH ×2 (12:48→17:22)
[2018-11-15] MEDS: SODIUM CHLORIDE 0.9% 1,000 ML IV SCH ×2 (12:56→19:59)
[2018-11-15 17:04] LABS: Glucose,Whole Blood 157 mg/dL (75-99)
[2018-11-15] MEDS: ceFAZolin IN SWFI 2 GM/20 ML SYRINGE IVP SCH (17:21)
--- NOTE | 2018-11-15 18:04 | P.CONS ---
History of Present Illness - Reason for Consult Consult date: 11/15/18 Medical management requested by Dr. Don Requesting physician: Alirio Don - Chief Complaint Right knee surgery - History of Present Illness Consultation: This is a very pleasant 63-year-old patient of Dr. yang from [place]. Chronic stable medical conditions include diabetes, fibromyalgia, osteoarthritis and anxiety. Also has depression. Underwent right total knee arthroplasty. Some pain is present. No nausea vomiting. No chest pain. Did tolerate some lunch. Sitting up out of bed. Awake watching television. Review of systems: GEN.: Tired EYES: None HEENT: None NECK: None RESPIRATORY: None CARDIOVASCULAR: None GASTROINTESTINAL: None GENITOURINARY: None MUSCULOSKELETAL: Pain in the joints] LYMPHATICS: None HEMATOLOGICAL: None PSYCHIATRY: None NEUROLOGICAL: None Social history: Smoked a pack a day for 40 years stopped in 2015 List of the . No alcohol. Family history: Cancer type unknown Physical examination: VITAL SIGNS: 98.4, 75, 16, 1:30/84, 94% on 2 L GENERAL: Average built, sitting up, comfortable. EYES: Pupils equal. Conjunctiva normal. HEENT: External appearance of nose and ears normal, oral cavity grossly normal. NECK: JVD not raised; masses not palpable. HEART: First and second heart sounds are normal; no edema. LUNGS: Respiratory rate normal; clear to auscultation. ABDOMEN: Soft, nontender, liver spleen not palpable, no masses palpable. LYMPHATICS: No lymph nodes palpable in the axilla and neck. PSYCH: Alert and oriented x3; mood and affect normal. NEUROLOGICAL: Cranial nerves grossly intact; no facial asymmetry, power and sensation grossly intact MUSCULAR schedule: Dressing over the right knee, evidence of OA in the other knee . Investigations reviewed in the clinical context: Accu-Cheks 120, 182, 164, 157 Assessment: -Right total knee arthroplasty -Diabetes mellitus type II on oral hypoglycemic -Chronic fibromyalgia -Primary osteoarthritis -anxiety depression not otherwise specified Plan: Home medications are resumed. Accu-Cheks will be followed. On Venodyne boots for DVT prophylaxis. On aspirin 325 mg twice a day for DVT prophylaxis by Dr. Don. Care was discussed with the patient. Questions were answered. Will follow along Thank you Dr. Don - Past Medical History Past Medical History: Diabetes Mellitus, Fibromyalgia, Osteoarthritis (OA) Additional Past Medical History / Comment(s): hx pancreatitis years ago History of Any Multi-Drug Resistant Organisms: None Reported Past Surgical History: Bariatric Surgery, Section, Cholecystectomy, Hernia Repair, Hysterectomy, Joint Replacement, Orthopedic Surgery Additional Past Surgical History / Comment(s): Left total knee replacement, tailbone removed, lap band, panniculectomy, rt hand joint surgery for basal joint disease, oophorectomy, lap band port replacement, EGD lap band removed revision to sleeve gastrectomy 12-25-16 Past Anesthesia/Blood Transfusion Reactions: No Reported Reaction, Family History of Problems w/ Anesthesia Additional Past Anesthesia/Blood Transfusion Reaction / Comm: sister- severe PONV Past Psychological History: Anxiety Additional Psychological History / Comment(s): spouse is blind Smoking Status: Former smoker Past Alcohol Use History: None Reported Additional Past Alcohol Use History / Comment(s): quit smoking September 2014 (had 1pk/day smoked for 40 years) Past Drug Use History: Marijuana Additional Drug Use History / Comment(s): CBD oil or edible-rare use - Past Family History Mother Family Medical History: Coronary Artery Disease (CAD), Dementia, Diabetes Mellitus Additional Family Medical History / Comment(s): at age 77 Father Family Medical History: Dementia, Neurologic Disorder Additional Family Medical History / Comment(s): parkinsons. at age 82 Brother(s) Family Medical History: Cancer Medications and Allergies Home Medications Medication Instructions Recorded Confirmed Type ALPRAZolam [Xanax] 0.5 mg PO BID 02/05/16 11/15/18 History DULoxetine HCL [Cymbalta] 120 mg PO BID 11/06/16 11/15/18 History Cholecalciferol [Vitamin D3 (25 5,000 unit PO DAILY 12/22/16 11/15/18 History Mcg = 1000 Iu)] Acetaminophen [Tylenol Extra 500 mg PO Q6H PRN 11/10/18 11/15/18 History Strength] Butalbit/Acetamin/Caff/Codeine 1 - 2 cap PO Q8H PRN 11/10/18 11/15/18 History [Butal/APAP/Caff/Cod 88-577-18-30MG] Celecoxib [CeleBREX] 200 mg PO DAILY 11/10/18 11/15/18 History Cyanocobalamin [Vitamin B-12] 500 mcg PO DAILY 11/10/18 11/15/18 History Docusate [Colace] 100 mg PO DAILY 11/10/18 11/15/18 History metFORMIN HCL [Glucophage] 1,000 mg PO BID 11/10/18 11/15/18 History Allergies Allergy/AdvReac Type Severity Reaction Status Date / Time No Known Allergies Allergy Verified 11/15/18 09:17 Physical Exam Vitals: Vital Signs Temp Pulse Resp BP Pulse Ox 11/15/18 15:00 99.2 F 90 16 146/83 93 L 11/15/18 11:50 76 144/81 11/15/18 11:35 71 144/86 11/15/18 11:20 68 132/79 11/15/18 11:05 75 149/78 11/15/18 10:50 70 129/78 11/15/18 10:45 76 16 11/15/18 10:35 74 133/76 11/15/18 10:20 82 142/72 11/15/18 10:05 76 125/72 11/15/18 09:50 98.4 F 75 16 130/84 11/15/18 09:46 75 16 128/60 94 L 11/15/18 09:30 75 16 121/58 93 L 11/15/18 09:15 81 16 125/61 99 11/15/18 09:00 73 16 116/56 98 11/15/18 08:57 96.9 F L 83 12 117/55 94 L 11/15/18 06:00 97.6 F 80 154/79 97 Intake and Output 11/15/18 11/15/18 11/15/18 06:59 14:59 22:59 Intake Total 400 901 Output Total 550 Balance 400 351 Intake: IV 400 901 Output: Urine 500 Estimated Blood Loss 50 Other: # Voids 1 Results CBC & Chem 7: 11/15/18 06:11 Labs: Abnormal Lab Results - Last 24 Hours (Table) 11/15/18 11/15/18 11/15/18 Range/Units 06:09 09:52 11:48 POC Glucose (mg/dL) 130 H 182 H 164 H (75-99) mg/dL 11/15/18 Range/Units 16:53 POC Glucose (mg/dL) 157 H (75-99) mg/dL
[2018-11-15] MEDS: SENNOSIDES-DOCUSATE SODIUM 1 EACH TAB PO SCH (19:50)
[2018-11-15] MEDS: ALPRAZolam 0.5 MG TAB PO SCH (19:51)
[2018-11-15] MEDS: ASPIRIN 325 MG TAB PO SCH (19:51)
[2018-11-15] MEDS: HYDROmorphone 0.5 MG/0.5 ML SYRINGE IVP PRN (19:55)
[2018-11-16] MEDS ORDERED: ceFAZolin IN SWFI 2 GM/20 ML SYRINGE IVP SCH
[2018-11-16] MEDS: ceFAZolin IN SWFI 2 GM/20 ML SYRINGE IVP SCH (00:39)
[2018-11-16] MEDS: LACTATED RINGERS 1,000 ML IV SCH (00:41)
[2018-11-16] MEDS: HYDROmorphone 0.5 MG/0.5 ML SYRINGE IVP PRN ×2 (04:05→08:24)
[2018-11-16 07:09] LABS: Glucose,Whole Blood 136 mg/dL (75-99)
[2018-11-16] MEDS: ASPIRIN 325 MG TAB PO SCH ×2 (08:25→20:27)
[2018-11-16] MEDS: MELOXICAM 7.5 MG TAB PO SCH (08:25)
[2018-11-16] MEDS: DULoxetine HCL 60 MG CAPSULE.DR PO SCH ×2 (08:26→20:27)
[2018-11-16] MEDS: ALPRAZolam 0.5 MG TAB PO SCH ×2 (08:26→20:27)
[2018-11-16] MEDS: metFORMIN 500 MG TAB PO SCH ×2 (08:26→16:52)
[2018-11-16] MEDS: CYANOCOBALAMIN 500 MCG TAB PO SCH (08:26)
[2018-11-16 08:44] LABS: Basophils % (A) 0 %; Eosinophils # (A) 0.1 k/uL (0-0.7); Eosinophils % (A) 1 %; HCT 31.3 % (34.0-46.0); Lymphocytes # (A) 1.5 k/uL (1.0-4.8); Lymphocytes % (A) 16 %; MCH 29.9 pg (25.0-35.0); MCHC 33.1 g/dL (31.0-37.0); MCV 90.1 fL (80.0-100.0); Mean Platelet Volume 6.9; Monocytes # (A) 0.7 k/uL (0-1.0); Monocytes % (A) 7 %; Neutrophils % (A) 75 %; Platelet Count 281 k/uL (150-450); RBC 3.47 m/uL (3.80-5.40); RDW 13.4 % (11.5-15.5); WBC 9.3 k/uL (3.8-10.6)
[2018-11-16 08:47] LABS: HGB 10.4 gm/dL (11.4-16.0)
--- NOTE | 2018-11-16 09:06 | P.PN ---
Subjective Progress Note Date: 11/16/18 this is a 63-year-old female who is status post right total knee arthroplasty. This is postoperative day #1 and patient is seen and evaluated at bedside with Dr. Alirio Don. Patient states that her pain is well-controlled and she has been walking with physical therapy. Patient denies any fever/chills, numbness, weakness, tingling, abdominal pain, shortness of breath or chest pain. Objective - Vital Signs Vital signs: Vital Signs Temp 98.5 F 11/16/18 07:00 Pulse 84 11/16/18 07:00 Resp 16 11/16/18 07:00 BP 145/95 11/16/18 07:00 Pulse Ox 96 11/16/18 07:00 Intake & Output 11/15/18 11/16/18 11/16/18 18:59 06:59 18:59 Intake Total 2375 840 236 Output Total 550 Balance 1825 840 236 Intake: IV 901 Intake, IV Titration 550 840 Amount Sodium Chloride 0.9% 1, 550 840 000 ml @ 70 mls/hr IV . [id number] [facility] Rx#:[id number] Oral 924 236 Output: Urine 500 Estimated Blood Loss 50 Other: Voiding Method Toilet # Voids 3 - Exam Vital signs are stable. Patient is in no acute distress and is alert and oriented 3. Calf is soft and nontender to palpation. Dressing is clean, dry, and intact. Patient has full foot and ankle motion without pain or difficulty. Neurovascular status and circulatory status are intact. - Labs CBC & Chem 7: 11/16/18 07:35 11/15/18 06:11 Labs: Abnormal Lab Results - Last 24 Hours (Table) 11/15/18 11/15/18 11/15/18 Range/Units 09:52 11:48 16:53 RBC (3.80-5.40) m/uL Hgb (11.4-16.0) gm/dL Hct (34.0-46.0) % POC Glucose (mg/dL) 182 H 164 H 157 H (75-99) mg/dL 11/16/18 11/16/18 Range/Units 06:57 07:35 RBC 3.47 L (3.80-5.40) m/uL Hgb 10.4 L D (11.4-16.0) gm/dL Hct 31.3 L (34.0-46.0) % POC Glucose (mg/dL) 136 H (75-99) mg/dL Assessment and Plan (1) Osteoarthritis of right knee Current Visit: Yes Status: Acute Code(s): M17.11 - UNILATERAL PRIMARY OSTE OARTHRITIS, RIGHT KNEE SNOMED Code(s): 425908756644651 (2) S/P total knee arthroplasty Current Visit: Yes Status: Acute Code(s): Z96.659 - PRESENCE OF UNSPECIFIED ARTIFICIAL KNEE JOINT SNOMED Code(s): 9635792569517 Plan: #1 Continue with routine postoperative care and pain control, leave dressing in place for ten days. #2 Anticoagulation with aspirin. #3 Physical therapy and CPM today. #4 Appreciate input from medicine. #5 Anticipate discharge to the [facility] on .
[2018-11-16 11:35] LABS: Glucose,Whole Blood 126 mg/dL (75-99)
--- NOTE | 2018-11-16 12:14 | P.PN ---
Progress Note - Text Anesthesia POD 1. Patient is status post right TKR under spinal anesthesia with a right adductor canal catheter placed for postoperative pain relief. With ropivacaine 0.2% running at 10 cc's per hour, the patient's VAS is (1, 4). Catheter site is clean dry and intact.
[2018-11-16 16:50] LABS: Glucose,Whole Blood 135 mg/dL (75-99)
[2018-11-16] MEDS: SODIUM CHLORIDE 0.9% 1,000 ML IV SCH (19:23)
[2018-11-16] MEDS: SENNOSIDES-DOCUSATE SODIUM 1 EACH TAB PO SCH (20:27)
[2018-11-17] MEDS ORDERED: HYDROcodone/APAP 5-325MG 1 EACH TAB ONE (04:45)
[2018-11-17] MEDS: SODIUM CHLORIDE 0.9% 1,000 ML IV SCH ×2 (05:16→16:16)
[2018-11-17] MEDS: LACTATED RINGERS 1,000 ML IV SCH (05:22)
[2018-11-17] MEDS ORDERED: HYDROcodone/APAP 7.5-325MG 1 EACH TAB PO PRN (08:42)
--- NOTE | 2018-11-17 09:43 | P.PN ---
Subjective Progress Note Date: 11/17/18 This is a 63-year-old female who is status post right total knee arthroplasty. This is postoperative day #2 and patient is seen and evaluated at bedside with Dr. Alirio Don. Patient states that she has been up and walking with physical therapy. Patient denies any new complaints today. Patient denies any fever/chills, numbness, weakness, tingling, abdominal pain, shortness of breath or chest pain. Objective - Vital Signs Vital signs: Vital Signs Temp 98.5 F 11/17/18 07:04 Pulse 89 11/17/18 07:04 Resp 16 11/17/18 07:04 BP 134/71 11/17/18 07:04 Pulse Ox 95 11/17/18 07:04 Intake & Output 11/16/18 11/17/18 11/17/18 18:59 06:59 18:59 Intake Total 1436 250 Balance 1436 250 Intake: Intake, IV Titration 560 Amount Sodium Chloride 0.9% 1, 560 000 ml @ 70 mls/hr IV . [id number] MAGDALENA Rx#:[id number] Oral 876 250 Other: Voiding Method Toilet # Voids 2 1 - Exam Vital signs are stable. Patient is in no acute distress and is alert and oriented 3. Calf is soft and nontender to palpation. Dressing is clean, dry, and intact. Patient has full foot and ankle motion without pain or difficulty. Neurovascular status and circulatory status are intact. - Labs CBC & Chem 7: 11/16/18 07:35 11/15/18 06:11 Labs: Abnormal Lab Results - Last 24 Hours (Table) 11/16/18 11/16/18 Range/Units 11:23 16:38 POC Glucose (mg/dL) 126 H 135 H (75-99) mg/dL Assessment and Plan (1) Osteoarthritis of right knee Current Visit: Yes Status: Acute Code(s): M17.11 - UNILATERAL PRIMARY OSTEOARTHRITIS, RIGHT KNEE SNOMED Code(s): 742588090965784 (2) S/P total knee arthroplasty Current Visit: Yes Status: Acute Code(s): Z96.659 - PRESENCE OF UNSPECIFIED ARTIFICIAL KNEE JOINT SNOMED Code(s): 7029159574422 Plan: #1 Continue with routine postoperative care and pain control, leave dressing in place for ten days. #2 Anticoagulation with aspirin. #3 Physical therapy and CPM today. #4 Appreciate input from medicine. #5 Anticipate discharge to the [facility] on .
[2018-11-17] MEDS: ASPIRIN 325 MG TAB PO SCH ×2 (09:49→20:30)
[2018-11-17] MEDS: metFORMIN 500 MG TAB PO SCH ×2 (09:49→16:42)
[2018-11-17] MEDS: CYANOCOBALAMIN 500 MCG TAB PO SCH (09:49)
[2018-11-17] MEDS: DULoxetine HCL 60 MG CAPSULE.DR PO SCH ×2 (09:49→20:33)
[2018-11-17] MEDS: MELOXICAM 7.5 MG TAB PO SCH (09:50)
[2018-11-17] MEDS: ALPRAZolam 0.5 MG TAB PO SCH ×2 (09:50→20:31)
[2018-11-17] MEDS: HYDROcodone/APAP 7.5-325MG 1 EACH TAB PO PRN ×2 (09:53→18:55)
--- NOTE | 2018-11-17 19:34 | P.PN ---
Progress Note - Text Progress Note Date: 11/16/18 Presenting complaint: Right knee surgery Interval history: Status post right knee surgery. Feeling much better. Some pain is present. No nausea vomiting. Did tolerate her diet. Has been out of bed. Review of systems: Was done for constitutional, cardiovascular, GI, pulmonary. Musculoskeletal relevant finding as above Current medications reviewed Physical examination: VITAL SIGNS: 98.2, 98, 16, 111/71, a 6% room air GENERAL: sitting up, comfortable. EYES: Pupils equal. Conjunctiva normal. HEENT: External appearance of nose and ears normal, oral cavity grossly normal. NECK: JVD not raised; masses not palpable. HEART: First and second heart sounds are normal; no edema. LUNGS: Respiratory rate normal; clear to auscultation. ABDOMEN: Soft, nontender, liver spleen not palpable, no masses palpable. LYMPHATICS: No lymph nodes palpable in the axilla and neck. PSYCH: Alert and oriented x3; mood and affect normal. NEUROLOGICAL: Cranial nerves grossly intact; no facial asymmetry, power and sensation grossly intact MUSCULAR schedule: Dressing over the right knee, evidence of OA in the other knee . Investigations reviewed in the clinical context: White count 9.3, hemoglobin 10.4 Accu-Cheks noted Assessment: -Right total knee arthroplasty -Diabetes mellitus type II on oral hypoglycemic -Chronic fibromyalgia -Primary osteoarthritis -anxiety depression not otherwise specified Plan: Patient doing well. Continue current medication treatment plan. Questions answered. Thank you Dr. Don
--- NOTE | 2018-11-17 19:36 | P.PN ---
Progress Note - Text Progress Note Date: 11/17/18 Presenting complaint: Right knee surgery Interval history: Status post right knee surgery. Feeling much better. Some pain is present. Did ambulate much better. No new issues. Did tolerate her diet. Review of systems: Was done for constitutional, cardiovascular, GI, pulmonary. Musculoskeletal relevant finding as above Current medications reviewed Physical examination: VITAL SIGNS: 98.5, 89, 16, 134/71, 95% room air GENERAL: sitting up, comfortable. EYES: Pupils equal. Conjunctiva normal. HEENT: External appearance of nose and ears normal, oral cavity grossly normal. NECK: JVD not raised; masses not palpable. HEART: First and second heart sounds are normal; no edema. LUNGS: Respiratory rate normal; clear to auscultation. ABDOMEN: Soft, nontender, liver spleen not palpable, no masses palpable. PSYCH: Alert and oriented x3; mood and affect normal. MUSCULAR schedule: Dressing over the right knee, evidence of OA in the other knee . Investigations reviewed in the clinical context: White count 9.3, hemoglobin 10.4. Preop hemoglobin was 13.7 on 10/26/2018 Accu-Cheks noted Assessment: -Right total knee arthroplasty -Diabetes mellitus type II on oral hypoglycemic -Chronic fibromyalgia -Primary osteoarthritis -anxiety depression not otherwise specified -Acute postop blood loss anemia as expected from surgery Plan: Patient doing well. Continue current medication treatment plan. Add iron supplementation. Patient looking to go to [facility]. Thank you Dr. Don
[2018-11-17] MEDS: FERROUS SULFATE 325 MG TAB PO SCH (20:30)
[2018-11-17] MEDS: SENNOSIDES-DOCUSATE SODIUM 1 EACH TAB PO SCH (20:31)
[2018-11-18] MEDS: LACTATED RINGERS 1,000 ML IV SCH (03:30)
[2018-11-18] MEDS: SODIUM CHLORIDE 0.9% 1,000 ML IV SCH ×2 (03:30→23:02)
[2018-11-18] MEDS: HYDROcodone/APAP 7.5-325MG 1 EACH TAB PO PRN ×3 (04:18→20:15)
[2018-11-18] MEDS: MELOXICAM 7.5 MG TAB PO SCH (07:15)
[2018-11-18] MEDS: metFORMIN 500 MG TAB PO SCH ×2 (07:15→16:54)
[2018-11-18] MEDS: FERROUS SULFATE 325 MG TAB PO SCH ×2 (07:16→16:54)
[2018-11-18] MEDS: CYANOCOBALAMIN 500 MCG TAB PO SCH (07:16)
[2018-11-18] MEDS: DULoxetine HCL 60 MG CAPSULE.DR PO SCH ×2 (07:16→20:10)
[2018-11-18] MEDS: ALPRAZolam 0.5 MG TAB PO SCH ×2 (07:16→20:09)
[2018-11-18] MEDS: ASPIRIN 325 MG TAB PO SCH ×2 (07:16→20:09)
[2018-11-18 07:43] LABS: Glucose,Whole Blood 134 mg/dL (75-99)
[2018-11-18 07:46] LABS: Basophils % (A) 0 %; Eosinophils # (A) 0.2 k/uL (0-0.7); Eosinophils % (A) 2 %; HCT 30.3 % (34.0-46.0); HGB 9.6 gm/dL (11.4-16.0); Lymphocytes # (A) 1.2 k/uL (1.0-4.8); Lymphocytes % (A) 15 %; MCH 28.9 pg (25.0-35.0); MCHC 31.7 g/dL (31.0-37.0); MCV 91.1 fL (80.0-100.0); Monocytes # (A) 0.6 k/uL (0-1.0); Monocytes % (A) 7 %; Neutrophils # (A) 5.9 k/uL (1.3-7.7); Neutrophils % (A) 75 %; Platelet Count 291 k/uL (150-450); RBC 3.32 m/uL (3.80-5.40); RDW 13.2 % (11.5-15.5); WBC 7.9 k/uL (3.8-10.6)
--- NOTE | 2018-11-18 08:44 | P.DS ---
Providers Date of admission: 11/15/18 05:30 Expected date of discharge: 11/18/18 Attending physician: Alirio Don Consults: 11/15/18 06:59 Consult Physician Routine Consulting Provider: Bill Tillman Consult Reason/Comments: medical management Do you want consulting provider notified?: Yes Primary care physician: Froylan Thomas - Discharge Diagnosis(es) (1) Osteoarthritis of right knee Current Visit: Yes Status: Acute (2) S/P total knee arthroplasty Current Visit: Yes Status: Acute Hospital Course: This is a 63-year-old female with known history of degenerative arthritis of the right knee. The patient presents for evaluation. After discussion and consideration patient elects to proceed with total knee arthroplasty. The patient is seen preoperatively by Dr. Don and medically cleared for surgery by their primary care physician. Patient is admitted to [facility] on 11/15/2018 for total knee arthroplasty. The procedures performed without complication or sequelae. The patient is doing well postoperatively. Labs and vital signs are stable on day of discharge. On day of discharge patient's knee incision is healing well. There is minimal erythema. There is no drainage noted at this time. There is minimal soft tissue swelling to the knee. Patient has full foot and ankle motion without difficulty or pain. Calf is soft and nontender to palpation. Neurovascular status to the right lower extremity is intact. Patient is discharged to rehab in good condition. Opioid start talking form is reviewed and signed at patient bedside. Please see med rec for accurate list of home medications. Plan - Discharge Summary Discharge Rx Participant: No New Discharge Prescriptions: New Aspirin 325 mg PO BID #60 tab HYDROcodone/APAP 7.5-325MG [[place] 7.5-325] 1 - 2 tab PO Q6H PRN #56 tab PRN Reason: Pain Sennosides [Senokot] 1 tab PO BID #60 tablet No Action ALPRAZolam [Xanax] 0.5 mg PO BID DULoxetine HCL [Cymbalta] 120 mg PO BID Cholecalciferol [Vitamin D3 (25 Mcg = 1000 Iu)] 5,000 unit PO DAILY metFORMIN HCL [Glucophage] 1,000 mg PO BID Docusate [Colace] 100 mg PO DAILY Celecoxib [CeleBREX] 200 mg PO DAILY Butalbit/Acetamin/Caff/Codeine [Butal/APAP/Caff/Cod 12-394-66-30MG] 1 - 2 cap PO Q8H PRN PRN Reason: Migraine Headache Cyanocobalamin [Vitamin B-12] 500 mcg PO DAILY Acetaminophen [Tylenol Extra Strength] 500 mg PO Q6H PRN PRN Reason: Pain Discharge Medication List ALPRAZolam [Xanax] 0.5 mg PO BID 02/05/16 [History] DULoxetine HCL [Cymbalta] 120 mg PO BID 11/06/16 [History] Cholecalciferol [Vitamin D3 (25 Mcg = 1000 Iu)] 5,000 unit PO DAILY 12/22/16 [History] Acetaminophen [Tylenol Extra Strength] 500 mg PO Q6H PRN 11/10/18 [History] Butalbit/Acetamin/Caff/Codeine [Butal/APAP/Caff/Cod 83-663-60-30MG] 1 - 2 cap PO Q8H PRN 11/10/18 [History] Celecoxib [CeleBREX] 200 mg PO DAILY 11/10/18 [History] Cyanocobalamin [Vitamin B-12] 500 mcg PO DAILY 11/10/18 [History] Docusate [Colace] 100 mg PO DAILY 11/10/18 [History] metFORMIN HCL [Glucophage] 1,000 mg PO BID 11/10/18 [History] Aspirin 325 mg PO BID #60 tab 11/17/18 [Rx] HYDROcodone/APAP 7.5-325MG [[place] 7.5-325] 1 - 2 tab PO Q6H PRN #56 tab 11/17/18 [Rx] Sennosides [Senokot] 1 tab PO BID #60 tablet 11/17/18 [Rx] Follow up Appointment(s)/Referral(s): [facility], [NON-STAFF] - As Needed Alirio Don DO [Doctor of Osteopathic Medicine] - 11/29/18 2:00 pm Ambulatory/Diagnostic Orders: Continuous Passive Motion (CPM) Machine [DME.AMB1] Time Frame: 3 Weeks, Location: None Selected Continuous Passive Motion (CPM) Machine [DME.AMB1] Time Frame: 3 Weeks, Location: None Selected Activity/Diet/Wound Care/Special Instructions: Weightbearing as tolerated with a walker. CPM 5-6h daily. Leave dressing intact. May be removed by home care nurse or by patient in 10 days. May shower with dressing on. Please follow up with [facility] and call with any questions or concerns, . Discharge Disposition: TRANSFER TO SNF/ECF
[2018-11-18 12:04] LABS: Glucose,Whole Blood 151 mg/dL (75-99)
[2018-11-18 17:17] LABS: Glucose,Whole Blood 87 mg/dL (75-99)
[2018-11-18 19:48] LABS: Glucose,Whole Blood 103 mg/dL (75-99)
[2018-11-18] MEDS: SENNOSIDES-DOCUSATE SODIUM 1 EACH TAB PO SCH (20:10)
--- NOTE | 2018-11-18 23:19 | P.PN ---
Progress Note - Text Progress Note Date: 11/18/18 Presenting complaint: Right knee surgery Interval history: Status post right knee surgery. continues to feel better. Some pain is present. Did tolerate her diet. Did work with therapy. No new issues. Review of systems: Was done for constitutional, cardiovascular, GI, pulmonary. Musculoskeletal relevant finding as above Current medications reviewed aspirin for DVT prophylaxis Physical examination: VITAL SIGNS: 98.4, 98, 16, 136-82, 97% room air GENERAL: sitting up, comfortable. EYES: Pupils equal. Conjunctiva normal. HEENT: External appearance of nose and ears normal, oral cavity grossly normal. NECK: JVD not raised; masses not palpable. HEART: First and second heart sounds are normal; no edema. LUNGS: Respiratory rate normal; clear to auscultation. ABDOMEN: Soft, nontender, liver spleen not palpable, no masses palpable. PSYCH: Alert and oriented x3; mood and affect normal. MUSCULAR schedule: Dressing over the right knee, evidence of OA in the other knee . Investigations reviewed in the clinical context: [id number], 151 Assessment: -Right total knee arthroplasty -Diabetes mellitus type II on oral hypoglycemic -Chronic fibromyalgia -Primary osteoarthritis -anxiety depression not otherwise specified -Acute postop blood loss anemia as expected from surgery Plan: stable. Continue current medication treatment plan. Discussed with patient. Thank you Dr. Don
[2018-11-19] MEDS: LACTATED RINGERS 1,000 ML IV SCH (04:29)
[2018-11-19] MEDS: HYDROcodone/APAP 7.5-325MG 1 EACH TAB PO PRN ×2 (06:34→14:38)
[2018-11-19] MEDS: MELOXICAM 7.5 MG TAB PO SCH (06:57)
[2018-11-19] MEDS: ASPIRIN 325 MG TAB PO SCH (06:57)
[2018-11-19] MEDS: FERROUS SULFATE 325 MG TAB PO SCH (06:57)
[2018-11-19] MEDS: ALPRAZolam 0.5 MG TAB PO SCH (06:58)
[2018-11-19] MEDS: DULoxetine HCL 60 MG CAPSULE.DR PO SCH (06:58)
[2018-11-19] MEDS: metFORMIN 500 MG TAB PO SCH (06:58)
[2018-11-19] MEDS: CYANOCOBALAMIN 500 MCG TAB PO SCH (06:58)
[2018-11-19 07:07] LABS: Glucose,Whole Blood 118 mg/dL (75-99)
[2018-11-19 11:55] LABS: Glucose,Whole Blood 147 mg/dL (75-99)
[2018-11-19] MEDS: SODIUM CHLORIDE 0.9% 1,000 ML IV SCH (12:29)
[2018-11-19 15:14] VITALS: BP 146/80; PULSE 91; RESP 16; TEMP 98.5
--- NOTE | 2018-11-19 21:44 | P.PN ---
Progress Note - Text Progress Note Date: 11/19/18 Presenting complaint: Right knee surgery Interval history: Status post right knee surgery. Feeling better. No new issues. Pain control. Her nausea vomiting. Tolerated diet. Review of systems: Was done for constitutional, cardiovascular, GI, pulmonary. Musculoskeletal relevant finding as above Current medications reviewed aspirin for DVT prophylaxis Physical examination: VITAL SIGNS: 98.5, 91, 16, 146/80, 97% GENERAL: sitting up, comfortable. EYES: Pupils equal. Conjunctiva normal. HEENT: External appearance of nose and ears normal, oral cavity grossly normal. NECK: JVD not raised; masses not palpable. HEART: First and second heart sounds are normal; no edema. LUNGS: Respiratory rate normal; clear to auscultation. ABDOMEN: Soft, nontender, liver spleen not palpable, no masses palpable. PSYCH: Alert and oriented x3; mood and affect normal. MUSCULAR schedule: Dressing over the right knee, evidence of OA in the other knee . Investigations reviewed in the clinical context: [id number], 147 Assessment: -Right total knee arthroplasty -Diabetes mellitus type II on oral hypoglycemic -Chronic fibromyalgia -Primary osteoarthritis -anxiety depression not otherwise specified -Acute postop blood loss anemia as expected from surgery Plan: Doing well. Continue current medication and treatment plan. Thank you Dr. Don
== END 2018-11-19 17:15 | disposition home health service (06) | DRG 470 ==
LOC: 2ORMAIN 05:30 → 4SSUR 09:11
PROVIDERS: ADMIT Orthopaedic Surgery; ATTEND Orthopaedic Surgery
PROC: 0SRC069 Replacement of Right Knee Joint with Oxidized Zirconium on Polyethylene Synthetic Substitute, Cemented, Open Approach (ICD-10-PCS; principal; 2018-11-15 07:00)
DX: M17.11 Unilateral primary osteoarthritis, right knee (principal); D62 Acute posthemorrhagic anemia; E11.9 Type 2 diabetes mellitus without complications; F41.9 Anxiety disorder, unspecified; F32.9 Major depressive disorder, single episode, unspecified; M21.061 Valgus deformity, not elsewhere classified, right knee; M79.7 Fibromyalgia; Z79.1 Long term (current) use of non-steroidal anti-inflammatories (NSAID); Z79.84 Long term (current) use of oral hypoglycemic drugs; Z82.0 Family history of epilepsy and other diseases of the nervous system; Z82.49 Family history of ischemic heart disease and other diseases of the circulatory system; Z83.3 Family history of diabetes mellitus; Z87.891 Personal history of nicotine dependence; Z90.710 Acquired absence of both cervix and uterus; Z96.652 Presence of left artificial knee joint; Z98.84 Bariatric surgery status; Z90.49 Acquired absence of other specified parts of digestive tract; Z79.899 Other long term (current) drug therapy
CPT/HCPCS: 84132; 85025; 88300

== ENCOUNTER → 2019-12-07 | Outpatient (CLI) | payer MEDICARE ==
[2019-12-07 08:41] LABS: African American GFR (CKD) >90 (>60 ml/min/1.73 sqM); Blood Urea Nitrogen 14 mg/dL (7-17); Non-African American GFR(CKD) 86 (>60 ml/min/1.73 sqM)
--- NOTE | 2019-12-07 10:58 | CT ---
EXAMINATION TYPE: CT soft tissue neck w con DATE OF EXAM: 12/07/2019 9:07 AM COMPARISON: HISTORY: Rt ear blockage and pain CT DLP: 729 mGycm Automated exposure control for dose reduction was used. CONTRAST: CT scan of the neck is performed following with IV Contrast, patient injected with 100 mL of Isovue 3 00. Axial images are obtained, coronal and sagittal reformatted images are reviewed. FINDINGS: Airway: No gross abnormality seen. Parotid/submandibular glands: No gross abnormality seen. Carotid/Vascular Structures: No significant abnormality Osseous Structures: Degenerative disc changes are present in the cervical spine. Other: There is some irregular soft tissue present in the anterior mediastinum which is incompletely evaluated measuring approximately 2.7 x 1.4 cm, no definite mass effect IMPRESSION: Degenerative disc disease. Indeterminate mediastinal soft tissue is incompletely evaluat ed and shows nonaggressive appearance, consider follow-up
== END | disposition home or self-care (01) ==
LOC: RADCTMAIN 08:08
PROVIDERS: ATTEND Otolaryngology
DX: M54.2 Cervicalgia (principal)
CPT/HCPCS: 82565; 84520; 70491; 36415; Q9967

== ENCOUNTER → 2019-12-21 | Outpatient (CLI) | payer MEDICARE ==
[2019-12-21 12:46] LABS: African American GFR (CKD) >90 (>60 ml/min/1.73 sqM); Blood Urea Nitrogen 13 mg/dL (7-17); Non-African American GFR(CKD) >90 (>60 ml/min/1.73 sqM)
--- NOTE | 2019-12-21 17:06 | CT ---
EXAMINATION TYPE: CT chest w con DATE OF EXAM: 12/21/2019 COMPARISON: CT neck 12/07/2019 HISTORY: abn CT neck CONTRAST: CT scan of the chest is performed with IV Contrast, patient injected with 100 mL of Isovue 300. FINDINGS: LUNGS: The lungs are grossly clear, there is no concerning parenchymal mass or focal opacity. There a re a few scattered 2 to 3 mm pulmonary nodules. There is no pleural effusion or pneumothorax seen. T he tracheobronchial tree is patent. MEDIASTINUM: Normal cardiac size. No pericardial effusion. No thoracic aortic aneurysm. There is prom inence of the right and left main pulmonary arteries. There is a somewhat triangular-shaped 3.6 x 1.9 cm soft tissue anterior to the ascending aorta (500:56), previously measuring 2.6 x 1.[address] neck comparison. No other mediastinal or hilar lymph nodes are seen. OTHER: No axillary adenopathy. Gastric sleeve changes of the stomach. No adrenal nodule. Osteopenia. Degenerative changes of the spine. IMPRESSION: Anterior mediastinal angular shaped soft tissue mildly increased in size versus 0 comparison, measuring up to 3.6 x 1.9 cm. Differential includes thymic hyperplasia, lymphoid hyperp lasia, or neoplastic process. No additional lymphadenopathy is seen.
== END | disposition home or self-care (01) ==
LOC: RADCTMAIN 12:09
PROVIDERS: ATTEND Otolaryngology
DX: M79.89 Other specified soft tissue disorders (principal); E32.0 Persistent hyperplasia of thymus
CPT/HCPCS: 82565; 84520; 71260; 36415; Q9967

== ENCOUNTER → 2020-01-31 | Outpatient (CLI) | payer MEDICARE ==
[2020-01-31 18:50] LABS: Hemoglobin A1C 6.9 % (4.0-6.0)
== END | disposition home or self-care (01) ==
LOC: LABWHC1 09:14
PROVIDERS: ATTEND Family Medicine
DX: E11.9 Type 2 diabetes mellitus without complications (principal)
CPT/HCPCS: 36415; 83036

== ENCOUNTER → 2020-01-31 | Outpatient (CLI) | payer MEDICARE ==
[2020-01-31 10:51] LABS: Basophils # (A) 0.1 k/uL (0-0.2); Basophils % (A) 1 %; Eosinophils # (A) 0.2 k/uL (0-0.7); Eosinophils % (A) 3 %; HCT 40.2 % (34.0-46.0); HGB 12.6 gm/dL (11.4-16.0); Lymphocytes # (A) 1.5 k/uL (1.0-4.8); Lymphocytes % (A) 29 %; MCH 27.4 pg (25.0-35.0); MCHC 31.3 g/dL (31.0-37.0); MCV 87.7 fL (80.0-100.0); Mean Platelet Volume 6.5; Monocytes # (A) 0.3 k/uL (0-1.0); Monocytes % (A) 6 %; Neutrophils # (A) 3.1 k/uL (1.3-7.7); Neutrophils % (A) 59 %; Platelet Count 322 k/uL (150-450); RBC 4.58 m/uL (3.80-5.40); WBC 5.3 k/uL (3.8-10.6)
[2020-01-31 11:01] LABS: African American GFR (CKD) >90 (>60 ml/min/1.73 sqM); Anion Gap 7 mmol/L; Blood Urea Nitrogen 12 mg/dL (7-17); Carbon Dioxide 29 mmol/L (22-30); Chloride 104 mmol/L (98-107); Glucose 139 mg/dL (74-99); Non-African American GFR(CKD) >90 (>60 ml/min/1.73 sqM); Potassium 4.9 mmol/L (3.5-5.1); Sodium 140 mmol/L (137-145)
[2020-01-31 11:09] LABS: INR 0.9 (<1.2); Prothrombin Time 9.7 sec (9.0-12.0)
[2020-01-31 11:42] LABS: Partial Thromboplastin Time 20.6 sec (22.0-30.0)
== END | disposition home or self-care (01) ==
LOC: LABPAT 09:07
PROVIDERS: ATTEND Thoracic Surgery (Cardiothoracic Vascular Surgery)
DX: Z01.818 Encounter for other preprocedural examination (principal); U07.1 COVID-19; D15.0 Benign neoplasm of thymus; Z79.01 Long term (current) use of anticoagulants
CPT/HCPCS: 80051; 82565; 82947; 84520; 85025; 85610; 85730; 93005; U0003; C9803

== ENCOUNTER 2020-02-02 05:53 | Inpatient (IN) | payer MEDICARE ==
[2020-01-26 10:47] VITALS: BMI 29.9
[2020-02-02 06:42] LABS: Glucose,Whole Blood 119 mg/dL (75-99)
[2020-02-02] MEDS ORDERED: ONDANSETRON 4 MG/2 ML VIAL IVP ONE (06:46)
[2020-02-02] MEDS ORDERED: LACTATED RINGERS 1,000 ML IV SCH (06:46)
[2020-02-02] MEDS ORDERED: DEXAMETHASONE SOD PHOSPHATE 10 MG/ML 1 ML VIAL IV ONE (06:46)
[2020-02-02] MEDS ORDERED: MIDAZOLAM 2 MG/2 ML VIAL ONE (07:30)
[2020-02-02] MEDS ORDERED: ROCURONIUM BROMIDE 10 MG/ML 5 ML VIAL IV ONE (07:30)
[2020-02-02] MEDS ORDERED: GLYCOPYRROLATE 0.2 MG/ML 2 ML VIAL ONE (07:30)
[2020-02-02] MEDS ORDERED: NEOSTIGMINE 1 MG/ML 10 ML VIAL ONE (07:30)
[2020-02-02] MEDS ORDERED: LIDOCAINE 1% INJ 10MG/ML (20 ML MDV) ONE (07:30)
[2020-02-02] MEDS ORDERED: SUCCINYLCHOLINE CHLORIDE 100 MG/5 ML SYR IV ONE (07:30)
[2020-02-02] MEDS ORDERED: fentaNYL (PF) 50 MCG/ML 2 ML AMP ONE (07:30)
[2020-02-02] MEDS ORDERED: HYDROmorphone (PF) 1 MG/ML ONE (07:30)
[2020-02-02] MEDS ORDERED: PROPOFOL 10 MG/ML 20 ML VIAL IV ONE (07:30)
[2020-02-02] MEDS ORDERED: BUPIVACAINE (PF) 0.5% 30 ML VIAL SQ ONE ×2 (08:47)
[2020-02-02] MEDS ORDERED: LACTATED RINGERS 1,000 ML IV ONE (09:10)
--- NOTE | 2020-02-02 10:43 | P.OP ---
Date of Procedure: 02/02/20 Preoperative Diagnosis: Thymic mass Postoperative Diagnosis: Same Procedure(s) Performed: Robotic-assisted right thoracoscopic total thymectomy Anesthesia: DMITRIY Surgeon: Eligio Gamble Furniture Associate #1: Kit Bingham Estimated Blood Loss (ml): 20 IV fluids (ml): 1,000 Urine output (ml): 250 Pathology: other (Thymus sent fresh. Specimen was oriented and reviewed with the pathologist prior to leaving the operating room.) Condition: stable Disposition: PACU Indications for Procedure: 64-year-old female with enlarging thymic mass Operative Findings: On initial thoracoscopy there was evidence of tumor in the left pleural space with thin filmy adhesions of both the upper and middle lobe to this area. Grossly the mass easily was resected en bloc without any issues with tumor inva edyta. Description of Procedure: The patient was brought to the operating room, placed supine on the operating table, anesthetized and intubated with a double-lumen endotracheal tube. The tube was positioned with fiberoptic bronchoscopy and secured. Patient was appropriately positioned in the supine position for right thoracoscopic thymectomy. The right chest and left anterior chest were sterilely prepped and draped. For robotic ports were placed in the third fifth seventh and ninth interspaces. On placing the first port the thoracoscope was introduced and presence in the pleural space was confirmed and CO2 insufflation was begun. A working port was placed anteriorly in the 10th interspace just above the diaphragm. The robot was docked. We began by taking down the thin filmy adhesions of the right lung to the area of the tumor. We then mobilized the thymic fat pad along the phrenic nerve laterally being sure to not injure the right phrenic nerve. Dissection was carried up to the apex of the chest and the dissection continued inferiorly along the mammary artery and vein. The mammary vein was really identified and dissected out. The right superior thyroid pole was dissected out. Dissection was now carried inferiorly and the thymic fat pad overlying the right pericardium was mobilized. Dissection was continued anteriorly into the left pleural space. The left pericardial fat pad was then mobilized and retracted to the right. Dissection was now continued along the innominate vein and branches of the innominate vein leading into the thymus were ligated with the vessel sealer and divided. The left superior horn of the thymus was then dissected down. We completed the dissection by completing the superior portion of the left-sided dissection along the mammary artery and vein. Once the thymic gland was completely freed it was loaded in a bag and retracted partially out of the chest. Exploration at this point revealed excellent hemo stasis. The robot was undocked and the working port incision enlarged and the specimen removed without difficulty. It was oriented on a towel and marked and reviewed with the pathologist prior to being sent to pathology fresh. Separate stab incision was made and a 28-Cambodian chest tube was positioned posterior apically and secured at the skin with a 0 Ethibond suture. The lung was reinflated under thoracoscopic visualization. Incisions were closed with layers of Vicryl suture. Rib blocks were performed at the level of the incisions with half percent Marcaine. Skin glue and dry sterile dressings were applied and the patient was extubated and transferred to recovery room in stable condition.
[2020-02-02] MEDS: HYDROmorphone 0.5 MG/0.5 ML SYRINGE IVP PRN ×4 (10:56→11:31)
--- NOTE | 2020-02-02 11:05 | XR ---
EXAMINATION TYPE: XR chest 1V portable DATE OF EXAM: 02/02/2020 HISTORY: Shortness of breath. COMPARISON: None. TECHNIQUE: Single view of the chest is submitted. FINDINGS: Demonstrated are scattered senescent parenchymal change. Right sided chest tube in place. No evidence for pneumothorax. Left basilar atelectasis or infiltrate s. The heart is stable. Hilar and mediastinal structures are within normal limits. Degenerative changes are seen of the dorsal spine. IMPRESSION: 1. Right sided chest tube in place. No evidence for pneumothorax. Left basilar atelectasis or infilt rates.
[2020-02-02 11:08] LABS: Glucose,Whole Blood 222 mg/dL (75-99)
[2020-02-02] MEDS ORDERED: ACETAMINOPHEN TAB 500 MG TAB PO PRN (11:08)
[2020-02-02] MEDS ORDERED: ONDANSETRON 4 MG/2 ML VIAL IVP PRN (11:08)
[2020-02-02] MEDS ORDERED: SODIUM CHLORIDE 0.9% 1,000 ML IV SCH (11:08)
[2020-02-02] MEDS ORDERED: IPRATROPIUM-ALBUTEROL 3 ML NEB IH PRN (11:08)
[2020-02-02] MEDS: HYDROcodone/APAP 5-325MG 1 EACH TAB PO PRN ×2 (15:44→22:39)
[2020-02-02] MEDS: HEPARIN SODIUM,PORCINE 5,000 UNIT/ML 1 ML VIAL SQ SCH ×2 (15:44→23:02)
[2020-02-02] MEDS: IPRATROPIUM-ALBUTEROL 3 ML NEB IH SCH ×2 (15:50→19:26)
[2020-02-02] MEDS: INSULIN ASPART (NovoLOG) 100 UNIT/ML VIAL SQ SCH ×3 (16:48→20:39)
[2020-02-02] MEDS: KETOROLAC 15 MG/ML 1 ML VIAL IVP SCH ×3 (16:48→23:02)
[2020-02-02 17:02] LABS: Glucose,Whole Blood 180 mg/dL (75-99)
[2020-02-02 20:16] LABS: Glucose,Whole Blood 333 mg/dL (75-99)
[2020-02-02] MEDS: ALPRAZolam 0.5 MG TAB PO SCH (20:38)
[2020-02-03] MEDS: HYDROcodone/APAP 5-325MG 1 EACH TAB PO PRN (04:39)
[2020-02-03] MEDS: KETOROLAC 15 MG/ML 1 ML VIAL IVP SCH ×3 (06:08→17:51)
[2020-02-03 06:11] LABS: Glucose,Whole Blood 123 mg/dL (75-99)
[2020-02-03] MEDS: INSULIN ASPART (NovoLOG) 100 UNIT/ML VIAL SQ SCH ×4 (06:37→20:28)
[2020-02-03] MEDS: metFORMIN 500 MG TAB PO SCH (06:55)
[2020-02-03] MEDS: PANTOPRAZOLE 40 MG TABLET PO SCH (06:55)
[2020-02-03 07:03] LABS: Basophils % (A) 0 %; Eosinophils # (A) 0.1 k/uL (0-0.7); Eosinophils % (A) 1 %; HCT 37.4 % (34.0-46.0); Lymphocytes # (A) 1.4 k/uL (1.0-4.8); Lymphocytes % (A) 10 %; MCH 28.5 pg (25.0-35.0); MCHC 32.2 g/dL (31.0-37.0); MCV 88.3 fL (80.0-100.0); Mean Platelet Volume 6.6; Monocytes # (A) 0.8 k/uL (0-1.0); Monocytes % (A) 6 %; Neutrophils # (A) 11.1 k/uL (1.3-7.7); Neutrophils % (A) 82 %; Platelet Count 303 k/uL (150-450); RBC 4.23 m/uL (3.80-5.40); WBC 13.5 k/uL (3.8-10.6)
[2020-02-03] MEDS ORDERED: HYDROcodone/APAP 7.5-325MG 1 EACH TAB PO PRN (07:04)
--- NOTE | 2020-02-03 07:18 | XR ---
EXAMINATION TYPE: XR chest 2V DATE OF EXAM: 02/03/2020 COMPARISON: Prior chest x-ray 02/02/2020 HISTORY: Status post thymectomy TECHNIQUE: Frontal and lateral views of the chest are obtained. FINDINGS: Right-sided chest tube is noted, there is interval development of subcutaneous emphysema o winston the right chest. No evident pneumothorax or pleural effusion. Elevation of the left hemidiaphragm , patchy basilar density on the left persists. Heart size is likely stable. Aorta is dense. IMPRESSION: Findings similar to prior exam. Basilar atelectasis and postprocedural changes.
[2020-02-03 07:27] LABS: African American GFR (CKD) >90 (>60 ml/min/1.73 sqM); Anion Gap 6 mmol/L; Blood Urea Nitrogen 13 mg/dL (7-17); Calcium 8.3 mg/dL (8.4-10.2); Carbon Dioxide 25 mmol/L (22-30); Chloride 103 mmol/L (98-107); Glucose 136 mg/dL (74-99); Non-African American GFR(CKD) >90 (>60 ml/min/1.73 sqM); Potassium 4.2 mmol/L (3.5-5.1); Sodium 134 mmol/L (137-145)
[2020-02-03] MEDS: IPRATROPIUM-ALBUTEROL 3 ML NEB IH SCH ×4 (08:52→21:11)
[2020-02-03] MEDS: VENLAFAXINE HCL 75 MG TAB PO SCH (08:53)
[2020-02-03] MEDS: CHOLECALCIFEROL 1,000 UNIT TAB PO SCH (08:53)
[2020-02-03] MEDS: HEPARIN SODIUM,PORCINE 5,000 UNIT/ML 1 ML VIAL SQ SCH ×2 (08:54→17:51)
--- NOTE | 2020-02-03 09:27 | P.PN ---
Subjective Progress Note Date: 02/03/20 Principal diagnosis: Thymic mass. Previous medical history of type 2 diabetes, depression/anxiety, chronic pain/fibromyalgia, previous tobacco dependence. POD #1 robotic-assisted right thoracoscopic total thymectomy The patient is sitting up in bed in no acute distress at this morning. Does complain of pain mostly relieved with current medication regimen. Denies shortness of breath. Has only been ambulatory to and from the bathroom. Right pleural [facility]. No new questions Objective - Vital Signs Vital signs: Vital Signs Temp 98.5 F 02/02/20 20:00 Pulse 90 02/03/20 09:03 Resp 18 02/03/20 04:00 BP 164/86 02/03/20 04:00 Pulse Ox 93 L 02/03/20 04:00 Intake & Output 02/02/20 02/03/20 02/03/20 18:59 06:59 18:59 Intake Total 2490 600 Output Total 385 450 Balance 2105 -450 600 Weight 92.079 kg 96.1 kg Intake: IV 1950 Oral 540 600 Output: Drainage 140 Right Chest 140 Urine 225 450 Estimated Blood Loss 20 - Constitutional General appearance: Present: cooperative, no acute distress, obese - Respiratory Details: Lungs sounds to minus bilaterally. Respirations even, nonlabored. Currently on room air with oxygen saturation 93%. Able to achieve 1000 mL on incentive spirometry. Right pleural chest tube present to waterseal, 260 mL serosanguineous drainage overnight, 400 mL since surgery, no air leak present. - Cardiovascular Details: S1, S2 present. Regular rate and rhythm, sinus rhythm on telemetry. Palpable peripheral pulses bilaterally. No edema present. No calf pain or tenderness noted. - Gastrointestinal Gastrointestinal Comment(s): Abdomen soft, nontender, nondistended. Active bowel sounds present 4 quadrants. Tolerating diet. - Genitourinary Genitourinary Comment(s): Continues to void - Integumentary Integumentary Comment(s): Skin is warm and dry with evidence of good perfusion - Neurologic Neurologic: Present: CNII-XII intact - Musculoskeletal Musculoskeletal: Present: gait normal, strength equal bilaterally - Psychiatric Psychiatric: Present: A&O x's 3, appropriate affect, intact judgment & insight - Allied health notes Allied health notes reviewed: nursing - Labs CBC & Chem 7: 02/03/20 06:21 02/03/20 06:21 Labs: Abnormal Lab Results - Last 24 Hours (Table) 02/02/20 02/02/20 02/02/20 Range/Units 11:04 17:00 20:15 WBC (3.8-10.6) k/uL Neutrophils # (1.3-7.7) k/uL Sodium (137-145) mmol/L Glucose (74-99) mg/dL POC Glucose (mg/dL) 222 H 180 H 333 H (75-99) mg/dL Calcium (8.4-10.2) mg/dL 02/03/20 02/03/20 02/03/20 Range/Units 06:10 06:21 06:21 WBC 13.5 H (3.8-10.6) k/uL Neutrophils # 11.1 H (1.3-7.7) k/uL Sodium 134 L (137-145) mmol/L Glucose 136 H (74-99) mg/dL POC Glucose (mg/dL) 123 H (75-99) mg/dL Calcium 8.3 L (8.4-10.2) mg/dL - Imaging and Cardiology Chest x-ray: report reviewed, image reviewed Assessment and Plan Assessment: 1. Thymic mass, status post total thymectomy 2. Type 2 diabetes 3. Depression/anxiety 4. Chronic pain/fibromyalgia 5. Previous tobacco dependence Plan: 1. Continue right pleural chest tube to waterseal. We will continue to monitor for decreased output, anticipate discontinuing chest tube later today versus tomorrow. 2. Encourage incentive spirometry use. 3. Increase activity, ambulate as tolerated. 4. Pain controlled current medication regimen. Increase Milton to 7.5 mg 5. GI/DVT prophylaxis 6. Diabetic management with home metformin along with sliding scale coverage based on blood sugar 7. Discharge planning in progress. Anticipate discharge tomorrow pending removal of chest tube Time with Patient: Greater than 30
[2020-02-03 11:48] LABS: Glucose,Whole Blood 183 mg/dL (75-99)
[2020-02-03 16:51] LABS: Glucose,Whole Blood 177 mg/dL (75-99)
[2020-02-03 20:12] LABS: Glucose,Whole Blood 159 mg/dL (75-99)
[2020-02-03] MEDS: HYDROcodone/APAP 7.5-325MG 1 EACH TAB PO PRN (20:27)
[2020-02-03] MEDS: ALPRAZolam 0.5 MG TAB PO SCH (20:28)
[2020-02-04] MEDS: HEPARIN SODIUM,PORCINE 5,000 UNIT/ML 1 ML VIAL SQ SCH ×4 (00:02→23:18)
[2020-02-04] MEDS: KETOROLAC 15 MG/ML 1 ML VIAL IVP SCH ×5 (00:02→23:17)
[2020-02-04] MEDS: HYDROcodone/APAP 7.5-325MG 1 EACH TAB PO PRN (05:24)
[2020-02-04 06:24] LABS: Glucose,Whole Blood 152 mg/dL (75-99)
[2020-02-04] MEDS: INSULIN ASPART (NovoLOG) 100 UNIT/ML VIAL SQ SCH ×4 (06:44→20:43)
[2020-02-04] MEDS: PANTOPRAZOLE 40 MG TABLET PO SCH (06:44)
[2020-02-04] MEDS: metFORMIN 500 MG TAB PO SCH (06:45)
[2020-02-04 06:48] LABS: HCT 34.3 % (34.0-46.0); HGB 11.1 gm/dL (11.4-16.0); MCH 28.6 pg (25.0-35.0); MCHC 32.5 g/dL (31.0-37.0); MCV 88.2 fL (80.0-100.0); Mean Platelet Volume 6.5; Platelet Count 259 k/uL (150-450); RDW 13.2 % (11.5-15.5); WBC 10.5 k/uL (3.8-10.6)
[2020-02-04 07:07] LABS: African American GFR (CKD) >90 (>60 ml/min/1.73 sqM); Anion Gap 6 mmol/L; Blood Urea Nitrogen 14 mg/dL (7-17); Calcium 8.2 mg/dL (8.4-10.2); Carbon Dioxide 27 mmol/L (22-30); Chloride 102 mmol/L (98-107); Glucose 137 mg/dL (74-99); Non-African American GFR(CKD) >90 (>60 ml/min/1.73 sqM); Sodium 135 mmol/L (137-145)
[2020-02-04] MEDS: VENLAFAXINE HCL 75 MG TAB PO SCH (07:58)
[2020-02-04] MEDS: CHOLECALCIFEROL 1,000 UNIT TAB PO SCH (07:59)
[2020-02-04] MEDS: IPRATROPIUM-ALBUTEROL 3 ML NEB IH SCH ×4 (09:01→19:54)
--- NOTE | 2020-02-04 10:06 | P.PN ---
Subjective Progress Note Date: 02/04/20 Principal diagnosis: Thymic mass. Past medical history significant for diabetes mellitus type 2, chronic pain for/fibromyalgia and previous tobacco dependence. POD #2 robotic-assisted right thoracoscopic total thymectomy. The patient was seen in follow-up today 02/04/2020, she is sitting up to the bedside chair and is in no acute distress. Denies any complaints of shortness of breath and reports she is having some surgical type pain rating her pain 2 out of 10 on the pain scale. Right pleural chest tube was removed yesterday. Dressing is intact with some serous colored drainage noted to the dressing. Oxygen saturation are 92% on 2 L nasal cannula. She is achieving 1250 mL on her incentive spirometry with much encouragement. Surgical pathology results remain pending. Objective - Vital Signs Vital signs: Vital Signs Temp 99.0 F 02/04/20 07:50 Pulse 89 02/04/20 09:16 Resp 18 02/04/20 07:50 BP 103/64 02/04/20 07:50 Pulse Ox 92 L 02/04/20 07:50 Intake & Output 02/03/20 02/04/20 02/04/20 18:59 06:59 18:59 Intake Total 960 140 Output Total 520 180 Balance 440 -180 140 Weight 95.7 kg Intake: Oral 960 140 Output: Drainage 70 Right Chest 70 Urine 450 180 Other: # Voids 1 1 - Constitutional General appearance: Present: cooperative, no acute distress, obese - EENT Eyes: Present: PERRLA, normal appearance. Absent: scleral icterus ENT: Present: hearing grossly normal - Neck Details: Neck is supple, no JVD, no lymphadenopathy. - Respiratory Details: Lung sounds are essentially clear throughout, diminished to her bilateral bases. Respirations are symmetrical and nonlabored. Oxygen saturation are 92% on 2 L nasal cannula. Achieving 1250 mL on her incentive spirometry with much encouragement. - Cardiovascular Details: Regular rhythm and rate. S1 and S2 present, negative for S3, gallop or murmur. Remote telemetry showing normal sinus rhythm heart rate 96. No edema present. Knee-high sequential compression devices in place were bilateral lower extremities. - Gastrointestinal Gastrointestinal Comment(s): Abdomen a soft, nontender and nondistended. Active bowel sounds present in all 4 abdominal quadrants. No guarding or rigidity. No organomegaly appreciated. Tolerating oral intake. - Genitourinary Genitourinary Comment(s): Continues to void. - Integumentary Integumentary Comment(s): Skin is warm and dry. No clubbing or cyanosis is present. Dressing with some scant serous drainage to her previous chest tube insertion site. Band-Aids clean, dry and intact to her robotic-assisted thoracoscopy incision sites. - Neurologic Neurologic: Present: CNII-XII intact - Musculoskeletal Musculoskeletal: Present: gait normal, generalized weakness, strength equal bilaterally - Psychiatric Psychiatric: Present: A&O x's 3, appropriate affect, intact judgment & insight - Allied health notes Allied health notes reviewed: nursing - Labs CBC & Chem 7: 02/04/20 06:34 02/04/20 06:34 Labs: Abnormal Lab Results - Last 24 Hours (Table) 02/03/20 02/03/20 02/03/20 Range/Units 11:46 16:49 20:11 Hgb (11.4-16.0) gm/dL Sodium (137-145) mmol/L Glucose (74-99) mg/dL POC Glucose (mg/dL) 183 H 177 H 159 H (75-99) mg/dL Calcium (8.4-10.2) mg/dL 02/04/20 02/04/20 02/04/20 Range/Units 06:22 06:34 06:34 Hgb 11.1 L (11.4-16.0) gm/dL Sodium 135 L (137-145) mmol/L Glucose 137 H (74-99) mg/dL POC Glucose (mg/dL) 152 H (75-99) mg/dL Calcium 8.2 L (8.4-10.2) mg/dL - Imaging and Cardiology Chest x-ray: image reviewed Assessment and Plan Assessment: 1. Thymic mass, status post total thymectomy 2. Type 2 diabetes 3. Depression/anxiety 4. Chronic pain/fibromyalgia 5. Previous tobacco dependence Plan: 1. Encourage use of her incentive spirometry 10 times every hour while awake. 2. Increase activity as tolerated, ambulate as tolerated. Out of bed for all meals. 3. Surgical pathology results remain pending, we will continue to follow. 4. Continue to monitor daily labs and chest x-rays. 5. Pain management per current when necessary regimen. 6. GI DVT prophylaxis. 7. Diabetic management and other comorbidities per primary care service. 8. Discharge planning in progress. Anticipate discharge home within the next 24 hours. 9. Encourage continued smoking sensation. 10. More recommendations to follow based on patient's clinical course. Time with Patient: Greater than 30
[2020-02-04] MEDS ORDERED: HYDROcodone/APAP 5-325MG 1 EACH TAB PO PRN (10:07)
--- NOTE | 2020-02-04 10:37 | XR ---
EXAMINATION TYPE: XR chest 2V DATE OF EXAM: 02/04/2020 CLINICAL HISTORY: Post thymectomy TECHNIQUE: Frontal and lateral views of the chest are obtained. COMPARISON: 02/03/2020 chest radiograph FINDINGS: Interval removal of right-sided chest tube. Mildly increased right subcutaneous emphysema. There is no definitive pneumothorax. There is a vertical thin black line over the right basal latera l chest which appears contiguous with a skin fold. Cardiac mediastinal silhouette is unchanged. [place] tion of the left hemidiaphragm. IMPRESSION: Interval removal of right-sided chest tube. Mildly increased right subcutaneous emphysema . No definitive pneumothorax. Thin black line over the right lateral chest represents a skin fold.
[2020-02-04 12:03] LABS: Glucose,Whole Blood 172 mg/dL (75-99)
[2020-02-04 16:43] LABS: Glucose,Whole Blood 140 mg/dL (75-99)
[2020-02-04 19:59] LABS: Glucose,Whole Blood 234 mg/dL (75-99)
[2020-02-04] MEDS: ALPRAZolam 0.5 MG TAB PO SCH (20:43)
[2020-02-04] MEDS: DOCUSATE 100 MG CAP PO SCH (20:43)
[2020-02-05 06:08] LABS: Basophils % (A) 0 %; Eosinophils # (A) 0.3 k/uL (0-0.7); Eosinophils % (A) 4 %; HGB 11.1 gm/dL (11.4-16.0); Lymphocytes # (A) 1.1 k/uL (1.0-4.8); Lymphocytes % (A) 16 %; MCH 28.1 pg (25.0-35.0); MCHC 31.8 g/dL (31.0-37.0); MCV 88.4 fL (80.0-100.0); Mean Platelet Volume 6.6; Monocytes # (A) 0.4 k/uL (0-1.0); Monocytes % (A) 5 %; Neutrophils % (A) 73 %; Platelet Count 261 k/uL (150-450); RBC 3.96 m/uL (3.80-5.40); WBC 6.8 k/uL (3.8-10.6)
[2020-02-05 06:16] LABS: African American GFR (CKD) >90 (>60 ml/min/1.73 sqM); Anion Gap 7 mmol/L; Blood Urea Nitrogen 13 mg/dL (7-17); Calcium 8.1 mg/dL (8.4-10.2); Carbon Dioxide 26 mmol/L (22-30); Chloride 102 mmol/L (98-107); Glucose 120 mg/dL (74-99); Non-African American GFR(CKD) >90 (>60 ml/min/1.73 sqM); Sodium 135 mmol/L (137-145)
[2020-02-05 06:17] LABS: Glucose,Whole Blood 127 mg/dL (75-99)
[2020-02-05] MEDS: INSULIN ASPART (NovoLOG) 100 UNIT/ML VIAL SQ SCH ×4 (06:30→21:05)
[2020-02-05] MEDS: KETOROLAC 15 MG/ML 1 ML VIAL IVP SCH (06:34)
[2020-02-05] MEDS: PANTOPRAZOLE 40 MG TABLET PO SCH (06:34)
[2020-02-05] MEDS: metFORMIN 500 MG TAB PO SCH (06:34)
--- NOTE | 2020-02-05 07:43 | XR ---
EXAMINATION TYPE: XR chest 2V DATE OF EXAM: 02/05/2020 COMPARISON: Postop chest x-ray TECHNIQUE: PA and lateral views submitted. HISTORY: 02/04/2020 FINDINGS: Bilateral consolidation and pleural effusion greater on the left. Subcutaneous emphysema noted. No si zable pneumothorax. Heart size stable. Hypertrophic and degenerative change spine. IMPRESSION: 1. Bilateral pleural effusion and infiltrate stable
[2020-02-05] MEDS: IPRATROPIUM-ALBUTEROL 3 ML NEB IH SCH ×4 (07:55→19:32)
[2020-02-05] MEDS ORDERED: FUROSEMIDE 10 MG/ML 2 ML VIAL IV ONE (07:59)
[2020-02-05] MEDS ORDERED: FUROSEMIDE 10 MG/ML 4 ML VIAL IV STA (08:11)
[2020-02-05] MEDS: HEPARIN SODIUM,PORCINE 5,000 UNIT/ML 1 ML VIAL SQ SCH ×2 (08:35→17:29)
[2020-02-05] MEDS: CHOLECALCIFEROL 1,000 UNIT TAB PO SCH (08:35)
[2020-02-05] MEDS: DOCUSATE 100 MG CAP PO SCH ×2 (08:35→21:05)
[2020-02-05] MEDS: VENLAFAXINE HCL 75 MG TAB PO SCH (08:36)
--- NOTE | 2020-02-05 09:20 | P.PN ---
Subjective Progress Note Date: 02/05/20 Principal diagnosis: Thymic mass. Past medical history significant for diabetes mellitus type 2, chronic pain for/fibromyalgia and previous tobacco dependence. POD #3 robotic-assisted right thoracoscopic total thymectomy. The patient was seen in follow-up today 02/05/2020 on the cardiac stepdown unit. Currently she is laying in bed, awake, alert and oriented 3 and is in no acute distress. She denies any complaints of shortness of breath or pain at this time and reports she feels much improved today. Oxygen saturation are 88-89% on room air and 95% on 2 L nasal cannula. Achieving 1250 mL on her incentive spirometry. Chest x-ray this morning shows bilateral pleural effusions. She reports she has been ambulating in the cardiac stepdown unit hallway with minimal assistance from nursing staff and tolerating well. Surgical pathology results remain pending. Afebrile last 24 hours. The patient reports prior to surgery she was having right neck pain and right ear pain which has totally resolved since having her surgery. Objective - Vital Signs Vital signs: Vital Signs Temp 98.2 F 02/04/20 20:00 Pulse 88 02/05/20 08:08 Resp 18 02/05/20 03:41 BP 137/65 02/05/20 03:41 Pulse Ox 95 02/05/20 03:41 Intake & Output 02/04/20 02/05/20 02/05/20 18:59 06:59 18:59 Intake Total 940 140 Balance 940 140 Weight 96 kg Intake: Oral 940 140 Other: # Voids 3 2 - Constitutional General appearance: Present: cooperative, no acute distress, obese - EENT Eyes: Present: PERRLA, normal appearance. Absent: scleral icterus ENT: Present: hearing grossly normal - Neck Details: Neck is supple, no JVD, no lymphadenopathy. - Respiratory Details: Lungs sounds essentially clear to her bilateral upper lobes, diminished or bilateral bases left greater than right. No wheezes, rhonchi or crackles. Respirations are symmetrical and nonlabored. Oxygen saturation are 95% on 2 L nasal cannula. Achieving 1250 mL on her incentive spirometry. - Cardiovascular Details: Regular rhythm and rate. S1 and S2 present, negative for S3, gallop or murmur. No edema present. Sequential compression devices in place to bilateral lower extremities. - Gastrointestinal Gastrointestinal Comment(s): Abdomen is soft, nontender and nondistended. Active bowel sounds present in all 4 abdominal quadrants. No guarding or rigidity. No organomegaly appreciated. Tolerating oral intake. - Genitourinary Genitourinary Comment(s): Continues to void. - Integumentary Integumentary Comment(s): Skin is warm and dry. No clubbing or cyanosis is present. Right chest incisions clean, dry and approximated. No drainage or redness is present. - Neurologic Neurologic: Present: CNII-XII intact - Musculoskeletal Musculoskeletal: Present: gait normal, strength equal bilaterally - Psychiatric Psychiatric: Present: A&O x's 3, appropriate affect, intact judgment & insight - Allied health notes Allied health notes reviewed: nursing - Labs CBC & Chem 7: 02/05/20 05:38 02/05/20 05:38 Labs: Abnormal Lab Results - Last 24 Hours (Table) 02/04/20 02/04/20 02/04/20 Range/Units 12:02 16:42 19:56 Hgb (11.4-16.0) gm/dL Sodium (137-145) mmol/L Glucose (74-99) mg/dL POC Glucose (mg/dL) 172 H 140 H 234 H (75-99) mg/dL Calcium (8.4-10.2) mg/dL 02/05/20 02/05/20 02/05/20 Range/Units 05:38 05:38 06:16 Hgb 11.1 L (11.4-16.0) gm/dL Sodium 135 L (137-145) mmol/L Glucose 120 H (74-99) mg/dL POC Glucose (mg/dL) 127 H (75-99) mg/dL Calcium 8.1 L (8.4-10.2) mg/dL - Imaging and Cardiology Chest x-ray: report reviewed, image reviewed Assessment and Plan Assessment: 1. Thymic mass, status post total thymectomy 2. Type 2 diabetes 3. Depression/anxiety 4. Chronic pain/fibromyalgia 5. Previous tobacco dependence Plan: 1. Encourage use of her incentive spirometry 10 times every hour while awake. 2. Increase activity as tolerated, ambulate as tolerated. Out of bed for all meals. 3. Surgical pathology results remain pending, we will continue to follow. 4. Continue to monitor daily labs and chest x-rays. 5. Pain management per current when necessary regimen. 6. GI DVT prophylaxis. 7. Diabetic management and other comorbidities per primary care service. 8. Discharge planning in progress. Anticipate discharge home within the next 24 hours. 9. Encourage continued smoking sensation. 10. Lasix 40 mg IV 1 now. 11. Ultrasound of the chest with markings, for possible bilateral pleural eff usions. 12. More recommendations to follow based on patient's clinical course. Time with Patient: Greater than 30
--- NOTE | 2020-02-05 09:22 | US ---
EXAMINATION TYPE: US chest DATE OF EXAM: 02/05/2020 COMPARISON: X ray CLINICAL HISTORY: Bilateral pleural effusions. TECHNIQUE: Targeted ultrasound of the posterior lung EXAM MEASUREMENTS: Right Pleural Effusion pocket size: 1.4 cm A/P Right skin surface to fluid distance: 3.2 cm A/P Left Pleural Effusion pocket size: 1.3 cm A/P Left skin surface to fluid distance: 2.8 cm A/P Right side was not marked for possible thoracentesis outside the dept. Left side was not marked for possible thoracentesis outside the dept. Pulmonologists are able to review the images in the patient?s EMR. IMPRESSIONS: 1. Tiny bilateral pleural effusions
[2020-02-05 12:15] LABS: Glucose,Whole Blood 169 mg/dL (75-99)
[2020-02-05 17:04] LABS: Glucose,Whole Blood 110 mg/dL (75-99)
[2020-02-05 20:51] LABS: Glucose,Whole Blood 153 mg/dL (75-99)
[2020-02-05] MEDS: ALPRAZolam 0.5 MG TAB PO SCH (21:05)
[2020-02-06] MEDS: HEPARIN SODIUM,PORCINE 5,000 UNIT/ML 1 ML VIAL SQ SCH ×2 (00:34→08:56)
[2020-02-06 06:22] LABS: Glucose,Whole Blood 124 mg/dL (75-99)
--- NOTE | 2020-02-06 06:45 | XR ---
EXAMINATION TYPE: XR chest 2V DATE OF EXAM: 02/06/2020 COMPARISON: Chest x-ray and ultrasound CT chest December 21, 2019. From yesterday. HISTORY: Postoperative thymectomy progress study. TECHNIQUE: Frontal and lateral views of the chest are obtained. FINDINGS: There is stable left basilar consolidation. Background mild chronic parenchymal change red emonstrated. Right lung remains clear with adjacent subcutaneous emphysema. No right-sided pneumothor ax identified. Silhouetting left heart border again seen. Small bilateral pleural effusions best appr eciated on lateral view are stable. Surgical changes epigastric region from sleeve surgery redemonstr ated. Cholecystectomy clips noted. The osseous structures are intact. IMPRESSION: Small bilateral pleural effusions with left basilar consolidation/atelectasis and right- sided subcutaneous emphysema all redemonstrated. No significant change from most recent x-ray.
[2020-02-06] MEDS: INSULIN ASPART (NovoLOG) 100 UNIT/ML VIAL SQ SCH ×2 (08:13→12:12)
[2020-02-06] MEDS: IPRATROPIUM-ALBUTEROL 3 ML NEB IH SCH ×2 (08:34→12:04)
[2020-02-06] MEDS: metFORMIN 500 MG TAB PO SCH (08:51)
[2020-02-06] MEDS: PANTOPRAZOLE 40 MG TABLET PO SCH (08:52)
[2020-02-06] MEDS: DOCUSATE 100 MG CAP PO SCH (08:56)
[2020-02-06] MEDS: VENLAFAXINE HCL 75 MG TAB PO SCH (08:56)
[2020-02-06] MEDS: CHOLECALCIFEROL 1,000 UNIT TAB PO SCH (08:56)
[2020-02-06] MEDS ORDERED: FUROSEMIDE 10 MG/ML 4 ML VIAL IV STA (09:05)
--- NOTE | 2020-02-06 09:12 | P.PN ---
Subjective Progress Note Date: 02/06/20 Principal diagnosis: Thymic mass. Previous medical history of type 2 diabetes, depression/anxiety, chronic pain/fibromyalgia, previous tobacco dependence. POD #4 robotic-assisted right thoracoscopic total thymectomy The patient is sitting up in bed in no acute distress. Denies pain, shortness of breath. Has been ambulatory in the hallway but requires much encouragement. Wants to go home Objective - Vital Signs Vital signs: Vital Signs Temp 97.9 F 02/06/20 04:00 Pulse 86 02/06/20 08:44 Resp 17 02/06/20 04:00 BP 137/74 02/06/20 04:00 Pulse Ox 95 02/06/20 04:00 Intake & Output 02/05/20 02/06/20 02/06/20 18:59 06:59 18:59 Intake Total 540 240 Balance 540 240 Weight 96.5 kg Intake: Oral 540 240 - Constitutional General appearance: Present: cooperative, no acute distress, obese - Respiratory Details: Lungs sounds to minus bilaterally. Respirations even, nonlabored. Currently on 2 L nasal cannula with oxygen saturation 95%, room air oxygen saturation 88%. Able to achieve 1000 mL on incentive spirometry. - Cardiovascular Details: S1, S2 present. Regular rate and rhythm, sinus rhythm on telemetry. Palpable peripheral pulses bilaterally. No edema present. No calf pain or tenderness noted. - Gastrointestinal Gastrointestinal Comment(s): Abdomen soft, nontender, nondistended. Active bowel sounds present 4 quadrants. Tolerating diet. Positive bowel movement this morning per patient - Genitourinary Genitourinary Comment(s): Continues to void - Integumentary Integumentary Comment(s): Skin is warm and dry with evidence of good perfusion. Incisions well approximated without redness or drainage - Neurologic Neurologic: Present: CNII-XII intact - Musculoskeletal Musculoskeletal: Present: gait normal, strength equal bilaterally - Psychiatric Psychiatric: Present: A&O x's 3, appropriate affect, intact judgment & insight - Allied health notes Allied health notes reviewed: nursing - Labs CBC & Chem 7: 02/05/20 05:38 02/05/20 05:38 Labs: Abnormal Lab Results - Last 24 Hours (Table) 02/05/20 02/05/20 02/05/20 Range/Units 12:13 17:03 20:49 POC Glucose (mg/dL) 169 H 110 H 153 H (75-99) mg/dL 02/06/20 Range/Units 06:20 POC Glucose (mg/dL) 124 H (75-99) mg/dL - Imaging and Cardiology Chest x-ray: report reviewed, image reviewed Assessment and Plan Assessment: 1. Thymic mass, status post total thymectomy, pathology pending 2. Type 2 diabetes 3. Depression/anxiety 4. Chronic pain/fibromyalgia 5. Previous tobacco dependence Plan: 1. Wean O2. Home oxygen walk test to be completed by nursing 2. Encourage incentive spirometry use. 3. Increase activity, ambulate as tolerated. 4. Pain control with current medication regimen. 5. GI/DVT prophylaxis 6. Diabetic management with home metformin along with sliding scale coverage based on blood sugar 7. Discharge planning in progress. Anticipate discharge this afternoon Time with Patient: Greater than 30
[2020-02-06 10:09] VITALS: RESP 18; TEMP 98.5
[2020-02-06 12:01] LABS: Glucose,Whole Blood 143 mg/dL (75-99)
[2020-02-06 12:57] VITALS: BP 143/80; PULSE 102
--- NOTE | 2020-02-06 16:55 | P.DS ---
Providers Date of admission: 02/02/20 05:53 Expected date of discharge: 02/06/20 Attending physician: Eligio Gamble Primary care physician: Simone Ceja MD Hospital Course: FINAL DIAGNOSIS: 1. Thymic mass 2. Type 2 diabetes 3. Depression/anxiety 4. Chronic pain/fibromyalgia 5. Previous tobacco dependence PRINCIPAL PROCEDURE: 1. Robotic-assisted right thoracoscopic total thymectomy HISTORY OF PRESENT ILLNESS: This is a 64-year-old active female with a recent history of odd symptomatology. She had a 3 day period where her whole right half of her body went numb. CT of the head was negative and no one could determine the etiology. She had some chronic pain below the right ear extending into the jaw. Nothing could be found on physical exam, and she underwent a CT of the neck. This demonstrated a mediastinal mass. Follow-up CT of the chest was completed confirming the presence of a 2-1/2 cm rounded mass in the thymus which was well encapsulated, abutted the right pleura and sat in front of the ascending aorta with no apparent invasion and no evidence of pleural metastasis. The patient was referred to Dr. Gamble from cardiothoracic surgery. She was recommended to undergo total thymectomy. The usual perioperative course was discussed in detail with the patient and her family, all risks and benefits were explained, all questions were answered, and consent was obtained to proceed with surgery. The patient was scheduled for surgery at the earliest possible date. HOSPITAL COURSE: The patient was brought to the hospital on 02/02/2020, taken to the preoperative area, prepared in the usual fashion, and subsequently taken to the operating room where Dr. Gamble performed a robotic-assisted right thoracoscopic total thymectomy. Upon completion of surgery the patient was extubated and taken to the recovery room where she was recovered and monitored hemodynamically. She remained stable and her chest tube was discontinued on postoperative day #1. Over the next couple of days her oxygen was titrated down, she continued to work with physical and occupational therapy, she was tolerating oral diet, her pain was controlled, and she was ready to be discharged to home on postoperative day #4. She received written and verbal instruction regarding her medications, activity restrictions, signs and symptoms requiring physician notification, and follow-up appointments. COMPLICATIONS: The patient experienced no postoperative complications. Patient Condition at Discharge: Serious Plan - Discharge Summary Discharge Rx Participant: Yes New Discharge Prescriptions: New Acetaminophen Tab [Tylenol] 1,000 mg PO Q6HR PRN tab PRN Reason: Fever and/ or Mild Pain Continue metFORMIN HCL [Glucophage] 1,000 mg PO QAM Hydrocodone/Acetaminophen [Stringer 5-325] 1 tab PO Q6HR PRN PRN Reason: Pain ALPRAZolam [Xanax] 0.5 mg PO HS Vitamin D3/Folic Acid 1 tab PO DAILY Venlafaxine HCl [Effexor] 75 mg PO DAILY Discharge Medication List metFORMIN HCL [Glucophage] 1,000 mg PO QAM 11/10/18 [History] ALPRAZolam [Xanax] 0.5 mg PO HS 01/26/20 [History] Hydrocodone/Acetaminophen [Stringer 5-325] 1 tab PO Q6HR PRN 01/26/20 [History] Venlafaxine HCl [Effexor] 75 mg PO DAILY 01/26/20 [History] Vitamin D3/Folic Acid 1 tab PO DAILY 01/26/20 [History] Acetaminophen Tab [Tylenol] 1,000 mg PO Q6HR PRN tab 02/06/20 [Rx] Follow up Appointment(s)/Referral(s): Simone Ceja MD [Primary Care Provider] - As Needed Graciela Lobato NPC [Nurse Practitioner] - 02/14/20 8:30 am (chest xray to be completed in office) Eligio Gamble MD [STAFF PHYSICIAN] - 02/23/20 9:30 am Activity/Diet/Wound Care/Special Instructions: DISCHARGE INSTRUCTIONS: 1. No driving for 2 weeks, or until physician gives their ok. 2. No lifting, pushing, or pulling more than 10 pounds for 2 weeks. The physician will advise of any restriction changes. 3. Continue pain control per as needed orders. Alternate acetaminophen (Tylenol) and ibuprofen (Motrin/Advil) for pain. 4. Continue with incentive spirometry and splinting until otherwise directed by the physician. 5. Remove all dressings and shower daily. 6. Routine incision care. No powders, lotions, ointments on incisions. 7. Please call surgeon/CARDING DOUBLER for temp greater than 101 F or purulent drainage from incisions. 8. Smoking cessation counseling and program information provided. For any questions or concerns please call cardiothoracic surgical convex grinder operator Morena at [phone] or Michael at [phone] Discharge Disposition: HOME SELF-CARE
--- NOTE | 2020-02-08 09:40 | CDI ---
Documentation Clarification Form Date: 02/08/20 From: Isabel Perez CCS Phone: If you have a question about this query, please contact Yvette Pena, Horticultural Farmer at [phone] between 8am and 5pm. Admit Date: 02/02/20 Discharge Date: 02/06/20 Patient Name: Evie Abbasi Visit Number: [id number] ATTENTION: The Clinical Documentation Specialists (CDI) and [facility] Coding Staff appreciate your assistance in clarifying documentation. Please respond to the clarification below the line at the bottom and electronically sign. The CDI & [facility] Coding staff will review the response and follow-up if needed. Please note: Queries are made part of the Legal Health Record. If you have any questions, please contact the author of this message via ITS. Dear Dr. 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 Yes No Other (please specify) Unable to determine Final diagnosis on the path report reads "Thymoma", although typing is deferred pending review at [facility]. There is no diagnosis of "Non-Hodgkin Lymphoma" on the pathology report. So I do NOT agree with the diagnosis of Non-Hodgkin Lymphoma, as you suggest, and do agree with the diagnosis of Thymoma, as documented in the pathology report, typing details to follow report from [facility]. SEBASD
== END 2020-02-06 14:27 | disposition home or self-care (01) | DRG 803 ==
LOC: 2ORMAIN 05:53 → 3SCARD 14:30
PROVIDERS: ADMIT Thoracic Surgery (Cardiothoracic Vascular Surgery); ATTEND Thoracic Surgery (Cardiothoracic Vascular Surgery)
PROC: 07TM4ZZ Resection of Thymus, Percutaneous Endoscopic Approach (ICD-10-PCS; principal; 2020-02-02 07:30)
PROC: 8E0W4CZ Robotic Assisted Procedure of Trunk Region, Percutaneous Endoscopic Approach (ICD-10-PCS; principal; 2020-02-02 07:30)
DX: D15.0 Benign neoplasm of thymus (principal); J90 Pleural effusion, not elsewhere classified; E11.9 Type 2 diabetes mellitus without complications; M19.90 Unspecified osteoarthritis, unspecified site; E55.9 Vitamin D deficiency, unspecified; F41.9 Anxiety disorder, unspecified; F32.9 Major depressive disorder, single episode, unspecified; G25.81 Restless legs syndrome; M79.7 Fibromyalgia; E66.9 Obesity, unspecified; Z71.6 Tobacco abuse counseling; Z68.31 Body mass index [BMI] 31.0-31.9, adult; Z79.84 Long term (current) use of oral hypoglycemic drugs; Z79.899 Other long term (current) drug therapy; Z90.49 Acquired absence of other specified parts of digestive tract; Z90.710 Acquired absence of both cervix and uterus; Z98.890 Other specified postprocedural states; Z96.639 Presence of unspecified artificial wrist joint; Z87.891 Personal history of nicotine dependence; Z83.3 Family history of diabetes mellitus; Z82.49 Family history of ischemic heart disease and other diseases of the circulatory system; Z82.0 Family history of epilepsy and other diseases of the nervous system
CPT/HCPCS: 71045; 71046; 76604; 80048; 85025; 85027; 88307; 88341; 88342; 94640

== ENCOUNTER → 2020-11-06 | Outpatient (CLI) | payer MEDICARE ==
--- NOTE | 2020-11-08 09:38 | MM ---
Reason for exam: screening (asymptomatic). Last mammogram was performed 4 years and 10 months ago. History: Patient is postmenopausal and had first child at age 30. Reductions of both breasts, 2011. Benign stereotactic core biopsy of the left breast, December 12, 2002. Core biopsy of the left breast. Excisional biopsy of the left breast. Took estrogen for 3 years beginning at age 30. Physical Findings: A clinical breast exam by your physician is recommended on an annual basis and results should be correlated with mammographic findings. MG 3D Screening Mammo W/Cad Bilateral CC and MLO view(s) were taken. Prior study comparison: January 22, 2016, bilateral MG diagnostic mammo w CAD ALDAIR. April 11, 2013, CAD bilateral diagnostic mammogram. There are scattered fibroglandular densities. ASSESSMENT: Negative, BI-RAD 1 RECOMMENDATION: Routine screening mammogram of both breasts in 1 year.
== END | disposition home or self-care (01) ==
LOC: RADMAMWWP 06:54
PROVIDERS: ATTEND Family Medicine
DX: Z12.31 Encounter for screening mammogram for malignant neoplasm of breast (principal); Z78.0 Asymptomatic menopausal state
CPT/HCPCS: 77063; 77067

== ENCOUNTER → 2020-12-06 | Outpatient (CLI) | payer MEDICARE ==
[2020-12-06 08:42] LABS: African American GFR (CKD) >90 (>60 ml/min/1.73 sqM); Blood Urea Nitrogen 14 mg/dL (7-17); Non-African American GFR(CKD) 81 (>60 ml/min/1.73 sqM)
--- NOTE | 2020-12-06 18:54 | CT ---
EXAMINATION TYPE: CT chest w con DATE OF EXAM: 12/06/2020 COMPARISON: 12/21/2019 HISTORY: Benign neoplasm of thymus CT DLP: 327.9 mGycm, Automated exposure control for dose reduction was used. CONTRAST: Performed injected with 100 mL of Isovue 300. TECHNIQUE: Axial images were obtained at 5 mm thick sections. Reconstructed images are reviewed on [employer] computer in the coronal plane. FINDINGS: Portion of the thyroid visualized is normal. There is increased density in the superior mediastinum compatible with the region of the thymus. This is more extensive than the comparison covering approximately 4.4 x 2.3 cm. Series 3 image 16. This m easures 14 Hounsfield units. No suspicious lung nodules or focal infiltrates are present. There is a small right pleural effusion. There may be some mild compressive atelectasis at the left diaphragm. No enlarged mediastinal or hilar adenopathy is evident. The ascending aorta diameter at the level o f the main pulmonary artery is 3.4 cm. The main pulmonary artery diameter at the bifurcation is 2.[address] sections are obtained through the upper abdomen. Abdomen is essentially unremarkable. IMPRESSIONS: 1. Continued enlargement of the area of increased density in the anterior superior mediastinum. 2. Interval development of a small right pleural effusion.
== END | disposition home or self-care (01) ==
LOC: RADCTMAIN 08:12
PROVIDERS: ATTEND Internal Medicine Critical Care Medicine
DX: D15.0 Benign neoplasm of thymus (principal); J98.4 Other disorders of lung; J90 Pleural effusion, not elsewhere classified
CPT/HCPCS: 82565; 84520; 71260; 36415; Q9967

== ENCOUNTER 2021-01-29 07:41 | Day surgery (SDC) | payer MEDICARE ==
[2021-01-23 17:54] VITALS: BMI 25.8
[~2021-01-29 07:41] MED LIST changes: -ACETAMINOPHEN TAB 500 MG TAB PO ONE; +LACTATED RINGERS 1,000 ML IV SCH; +LIDOCAINE 1% (10MG/ML) FOR IV START INTRADERMA PRN; -MELOXICAM 7.5 MG TAB PO ONE; -TRANEXAMIC ACID 1,000 MG in SODIUM CHLORIDE 0.9% 100 ML IVPB ONE; -ceFAZolin IN SWFI 2 GM/20 ML SYRINGE IVP ONE
[2021-01-29 07:59] VITALS: RESP 16; TEMP 97
[2021-01-29 08:10] LABS: Glucose,Whole Blood 114 mg/dL (75-99)
[2021-01-29] MEDS ORDERED: PROPOFOL 10 MG/ML 20 ML VIAL IV ONE (08:28)
--- NOTE | 2021-01-29 08:30 | P.GSHP ---
History of Present Illness H&P Date: 01/29/21 Chief Complaint: Colon cancer screening Patient her today for colonoscopy. Last colonoscopy over 10 years ago. No history of bowel complaints. Recent diagnosis of thymoma underwent resection. No family history of colon cancer. Past Medical History Past Medical History: Diabetes Mellitus, Fibromyalgia Additional Past Medical History / Comment(s): rt ear and jaw pain, thymus mass, hx pancreatitis, restless leg, sciatica, History of Any Multi-Drug Resistant Organisms: None Reported Past Surgical History: Back Surgery, Bariatric Surgery, Breast Surgery, Section, Cholecystectomy, Hernia Repair, Hysterectomy, Joint Replacement, Orthopedic Surgery, Tubal Ligation Additional Past Surgical History / Comment(s): Derrick total knee replacement, tailbone removed, lap band, panniculectomy, rt hand joint surgery for basal joint disease, oophorectomy, lap band port replacement, EGD lap band removed revision to sleeve gastrectomy 12-25-16, derrick total wrist, left third finger trigger finger, derrick carpal tunnel, COLONOSCOPY/EGD Past Anesthesia/Blood Transfusion Reactions: No Reported Reaction, Family His tory of Problems w/ Anesthesia Additional Past Anesthesia/Blood Transfusion Reaction / Comment(s): sister- severe PONV Smoking Status: Former smoker - Past Family History Mother History Unknown: Yes Family Medical History: Coronary Artery Disease (CAD), Dementia, Diabetes Mellitus Additional Family Medical History / Comment(s): at age 77 Father History Unknown: Yes Family Medical History: Dementia, Neurologic Disorder Additional Family Medical History / Comment(s): parkinsons. at age 82 Brother(s) Family Medical History: Cancer Medications and Allergies Home Medications Medication Instructions Recorded Confirmed Type metFORMIN HCL [Glucophage] 1,000 mg PO QAM 11/10/18 01/29/21 History ALPRAZolam [Xanax] 0.5 mg PO HS 01/26/20 01/29/21 History Hydrocodone/Acetaminophen [Tyler 1 tab PO Q6HR PRN 01/26/20 01/29/21 History 5-325] Vitamin D3/Folic Acid 1 tab PO DAILY 01/26/20 01/29/21 History Acetaminophen Tab [Tylenol] 1,000 mg PO Q6HR PRN tab 02/06/20 01/29/21 Rx Venlafaxine HCl [Effexor XR] 150 mg PO DAILY 01/23/21 01/29/21 History Allergies Allergy/AdvReac Type Severity Reaction Status Date / Time No Known Allergies Allergy Verified 01/23/21 17:47 Surgical - Exam Vital Signs Temp Pulse Resp BP Pulse Ox 97.0 F L 97 16 172/80 98 01/29/21 07:58 01/29/21 07:58 01/29/21 07:58 01/29/21 07:58 01/29/21 07:58 Physical exam: General: Well-developed, well-nourished HEENT: Normocephalic, sclerae nonicteric Abdomen: Nontender, nondistended Extremities: No edema Neuro: Alert and oriented Results - Labs Abnormal Lab Results - Last 24 Hours (Table) 01/29/21 Range/Units 08:05 POC Glucose (mg/dL) 114 H (75-99) mg/dL Assessment and Plan (1) Colon cancer screening Narrative/Plan: Will proceed with colonoscopy Current Visit: Yes Status: Acute Code(s): Z12.11 - ENCOUNTER FOR SCREENING FOR MALIGNANT NEOPLASM OF COLON SNOMED Code(s): 018074345
--- NOTE | 2021-01-29 08:48 | P.PCN ---
Date of Procedure: 01/29/21 Procedure(s) Performed: PREOPERATIVE DIAGNOSIS: Colon cancer screening POSTOPERATIVE DIAGNOSIS: Polyps, Diverticulosis PROCEDURE: Colonoscopy with snare polypectomy ANESTHESIA: MAC SURGEON: Cecil Pena M.D. SPECIMENS: 2 polyps ENDOSCOPIC PROCEDURE: The patient was placed on the endoscopy table in the left decubitus position. The Olympus colonoscope was inserted into the anus and passed under direct visualization to the base of the cecum. The appendiceal orifice was visualized. From that point the scope was slowly withdrawn inspecting all surfaces carefully. There were no neoplastic inflammatory or polypoid lesions throughout the cecum or ascending colon. At the hepatic flexure a small polyp was seen and removed using the snare with cautery technique. The remainder of the transverse descending and sigmoid colon appeared normal. In the rectum another small polyp was seen and removed in a similar fashion. The patient had mild diverticulosis as well. Digital rectal examination was normal. The patient was taken to the recovery room in stable condition per anesthesia guidelines. RECOMMENDATIONS: Await biopsy results.
[2021-01-29] MEDS ORDERED: IV FLUID CONTINUATION 500 ML IV ONE (08:50)
[2021-01-29 09:08] VITALS: BP 101/54; PULSE 82
== END 2021-01-29 09:20 | disposition home or self-care (01) ==
LOC: ORWHC2ENDO 07:41
PROVIDERS: ATTEND Surgery
DX: Z12.11 Encounter for screening for malignant neoplasm of colon (principal); D12.3 Benign neoplasm of transverse colon; K57.30 Diverticulosis of large intestine without perforation or abscess without bleeding; E11.9 Type 2 diabetes mellitus without complications; G25.81 Restless legs syndrome; F32.9 Major depressive disorder, single episode, unspecified; F41.9 Anxiety disorder, unspecified; M79.7 Fibromyalgia; Z79.84 Long term (current) use of oral hypoglycemic drugs; Z82.49 Family history of ischemic heart disease and other diseases of the circulatory system; Z83.3 Family history of diabetes mellitus; Z81.8 Family history of other mental and behavioral disorders; Z87.891 Personal history of nicotine dependence; Z90.49 Acquired absence of other specified parts of digestive tract; Z96.653 Presence of artificial knee joint, bilateral; Z90.722 Acquired absence of ovaries, bilateral; Z98.890 Other specified postprocedural states
CPT/HCPCS: 88305; 45385; J2704

== ENCOUNTER → 2021-02-25 | Outpatient (CLI) | payer MEDICARE ==
--- NOTE | 2021-02-25 08:38 | CT ---
EXAMINATION TYPE: CT chest wo con DATE OF EXAM: 02/25/2021 COMPARISON: Chest CT December 06, 2020 and older study December 21, 2019 HISTORY: Mediastinal mass CT DLP: 392.9 mGycm. Automated Exposure Control for Dose Reduction was Utilized. TECHNIQUE: CT scan of the thorax is performed without IV contrast. FINDINGS: LUNGS: Elevated left hemidiaphragm is redemonstrated. Stable focal chronic consolidation with hyperde nse material just above the elevated diaphragm. Mild/moderate focal anterior medial left upper lung l inear scarring redemonstrated for reference axial images 15 through 25. Some additional scattered mil d linear scarring. Occasional scattered dependent nodular atelectatic change. No suspicious new great er than 5 mm pulmonary nodules or masses. MEDIASTINUM: Lack of IV contrast is noted to limit evaluation for mediastinal and especially hilar ad enopathy. No new greater than 1 cm mediastinal lymph nodes. No cardiomegaly or pericardial effusion i s seen. The anterior superior mediastinum there is thin walled low density suspected fluid collection anterior to the aortic arch measuring 4.6 x 2.2 cm very similar to most recent prior. The prior more oval more dense soft tissue nodule from older studies is not clearly identified. There is bovine typ e aortic arch which is normal variant. OTHER: Surgical changes from gastric sleeve procedure redemonstrated. Stable near 1.0 cm low dense le edyta anterior liver axial image 50 consistent with benign simple thin-walled cyst. Cholecystectomy cl ips redemonstrated. Mild multilevel spurring in the thoracic spine. IMPRESSION: As above. 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 No obvi ous new mass or adenopathy identified on noncontrast CT to suggest neoplastic recurrence. 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
== END | disposition home or self-care (01) ==
LOC: RADCTMAIN 07:26
PROVIDERS: ATTEND Thoracic Surgery (Cardiothoracic Vascular Surgery)
DX: R91.8 Other nonspecific abnormal finding of lung field (principal)
CPT/HCPCS: 71250

== ENCOUNTER → 2021-11-13 | Outpatient (CLI) | payer MEDICARE ==
--- NOTE | 2021-11-13 20:29 | CT ---
EXAMINATION TYPE: CT chest wo con DATE OF EXAM: 11/13/2021 INDICATION: hx of mediastinal mass CT DLP: 595 mGy.cm Automated Exposure Control for Dose Reduction was Utilized. TECHNIQUE AND CONTRAST: CT scan of the chest without contrast. COMPARISON: CT detected 02/25/2021 FINDINGS: Persistent elevation of the left hemidiaphragm and adjacent left basal chronic atelectasis as well as calcification/surgical clips. Focal scarring seen at the medial aspect of the left upper lobe, less appreciated today compared to the previous CT scan. COPD changes. No new suspicious or progressive morena ng lesion. Patent trachea and main bronchi. No pleural or pericardial effusion. 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 Scattered arterial atherosclerotic calcifications. No pathologically enlarged lymph nodes in the chest. Regress ion of the previously seen anterior mediastinal fluid measuring 12 x 25 mm compared to 21 x 46 cm pre viously. No definite solid mediastinal lesion identified by this nonenhanced CT scan. Stable segment 4A hepatic cyst. Previous cholecystectomy. Previous gastric surgery. Dilated inferior esophagus, please correlate clinically. Duodenal diverticulum. Fecal loading of the visualized portio n of the colon. Apparently interval L1 upper endplate depression and vertebroplasty. Degenerative nickolas nges in the mid thoracic spine. IMPRESSION: Interval regression of the previously seen anterior mediastinal fluid as described above. No definite mediastinal mass identified by this nonenhanced CT scan. Other interval changes and incidental findi ngs as detailed above.
== END | disposition home or self-care (01) ==
LOC: RADCTMAIN 17:15
PROVIDERS: ATTEND Thoracic Surgery (Cardiothoracic Vascular Surgery)
DX: C37 Malignant neoplasm of thymus (principal)
CPT/HCPCS: 71250

== ENCOUNTER → 2021-12-09 | Outpatient (CLI) | payer MEDICARE ==
--- NOTE | 2021-12-10 08:49 | BD ---
EXAMINATION TYPE: Axial Bone Density DATE OF EXAM: 12/09/2021 COMPARISON: 11/16/2006 CLINICAL HISTORY: 66 years year old Female. ICD-10 CODE: Z13.820 ENCOUNTER FOR SCREENING FOR OSTEOP Height: 67.2 IN Weight: 187 LBS FRAX RISK QUESTIONS: Family History (Parent hip fracture): YES FATHER History of Fracture in Adulthood: LT WRIST AGE 66; L5 FX AGE 66 Secondary Osteoporosis: 3. Menopause before 45: TOTAL HYST AGE 38 RISK FACTORS HISTORY OF: Spine Fracture: L5 AGE 66 History of Wrist Fracture: LT WRIST AGE 66 Surgery to Spine : L5 AGE 66 Active: YES Postmenopausal woman: TOTAL HYST AGE 38 Take estrogen and/or progesterone medications: NOT NOW How long: TOOK FOR 1 1/2 YEARS Frequent falls: YES CLUMSINESS MEDICATIONS: Additional Medications: CALCIUM, FIBROMYALGIA MEDS, DEPRESSION MEDS, IBUPROFEN, CHOLESTEROL MES Additional History: THYMUS CANCER WITH RADIATION EXAM MEASUREMENTS: Bone mineral densitometry was performed using the [employer] System. L SPINE FX AND SURGERY AGE 66 Bone mineral density about the R hip (g/cm2): 0.959 Bone mineral density about the L hip (g/cm2): 0.929 T Score values are as follows: -----R Neck: -0.6 -----L Neck: -0.8 -----R Total: -0.7 -----L Total: -1.0 Bone mineral density has: Decreased -11.5% since study of: 11/16/2006 LT WRIST FX AGE 66. FRAX%s: The graph provided illustrates a 22.0 chance for a major osteoporotic fx and a 1.5 chance for the hips probability for fx in 10 years time. IMPRESSION: Osteopenia (T Score between -2.5 and -1). There is slightly increased risk of fracture and the patient may be considered for treatment. Re-Screen 2-5 years. NOTE: T-SCORE=SD OF THE YOUNG ADULT MEAN.
--- NOTE | 2021-12-10 11:32 | MM ---
Reason for Exam: Screening (asymptomatic). Last mammogram was performed 1 year(s) and 1 month(s) ago. Patient History: Menarche at age 13. First Full-Term at age 30. Late child-bearing (after 29). Left ovary removed at age 38. Right ovary removed at age 38. Hysterectomy at age 38. Postmenopausal. Previous chest radiation therapy at age 64. Estrogen for 3 years from age 30 until age 33. Core Biopsy on the Left side. Excisional Biopsy on the Left side. 2011, Bilateral Reduction. 12/12/2002, Benign Stereotactic Core Biopsy on the left side. Risk Values: Melissa 5 year model risk: 3.2%. NCI Lifetime model risk: 10.7%. Prior Study Comparison: 04/11/2013 Bilateral Diagnostic Mammogram, [facility]. 01/22/2016 Bilateral Diagnostic Mammogram, [facility]. 11/06/2020 Bilateral Screening Mammogram, [facility]. Tissue Density: There are scattered fibroglandular densities. Findings: Analyzed By CAD. There is no suspicious group of microcalcifications or new suspicious mass in either breast. No significant change from prior examination. Overall Assessment: Negative, BI-RAD 1 Management: Screening Mammogram of both breasts in 1 year. A clinical breast exam by your physician is recommended on an annual basis and results should be correlated with mammographic findings. Electronically signed and approved by: Jose Mancuso D.O.
== END | disposition home or self-care (01) ==
LOC: RADMAMWWP 14:38
PROVIDERS: ATTEND Family Medicine
DX: Z12.31 Encounter for screening mammogram for malignant neoplasm of breast (principal); Z78.0 Asymptomatic menopausal state
CPT/HCPCS: 77063; 77067; 77080

== ENCOUNTER → 2022-10-29 | Outpatient (CLI) | payer MEDICARE ==
--- NOTE | 2022-10-29 13:02 | CT ---
EXAMINATION TYPE: CT chest wo con DATE OF EXAM: 10/29/2022 COMPARISON: CT chest November 13, 2021 HISTORY: Hx Thymoma CT DLP: 394.10 mGycm. Automated Exposure Control for Dose Reduction was Utilized. TECHNIQUE: CT scan of the thorax is performed without IV contrast. FINDINGS: LUNGS: Elevated left hemidiaphragm with left basilar surgical change and mild to moderate left greate r than right bibasilar central and anterior linear scarring is redemonstrated. Lungs remain clear. There is no pleural effusion or pneumothorax seen. The tracheobronchial tree is patent. MEDIASTINUM: Lack of IV contrast is noted to limit evaluation for mediastinal and especially hilar ad enopathy. No new greater than 1 cm mediastinal lymph nodes or mass. No cardiomegaly or pericardial ef fusion is seen. In the anterior superior mediastinum there is thin walled low density suspected fluid collection ante rior to the aortic arch measuring 2.7 x 1.2 cm current study axial image 15 very similar to most rece nt prior CT. There is bovine type aortic arch which is normal variant redemonstrated. OTHER: Surgical changes from gastric sleeve procedure redemonstrated. Stable near 1.0 cm low dense le edyta anterior liver axial image 47 redemonstrated consistent with benign simple thin-walled cyst. Cho lecystectomy clips redemonstrated. Mild multilevel spurring in the thoracic spine. Vertebroplasty of L1 level redemonstrated with stable mild height loss. Cement material extends into the T12-L1 disc sp armando similar to prior root IMPRESSION: As above. No obvious new mass or adenopathy identified on noncontrast CT to suggest neopl astic recurrence. Suspect left diaphragmatic paralysis related to treatment changes redemonstrated wi thout significant change from most recent CT noted.
== END | disposition home or self-care (01) ==
LOC: RADCTMAIN 10:33
PROVIDERS: ATTEND Thoracic Surgery (Cardiothoracic Vascular Surgery)
DX: C37 Malignant neoplasm of thymus (principal)
CPT/HCPCS: 71250

== ENCOUNTER → 2023-11-02 | Outpatient (CLI) | payer MEDICARE ==
--- NOTE | 2023-11-02 11:57 | CT ---
EXAMINATION TYPE: CT chest wo con DATE OF EXAM: 11/02/2023 COMPARISON: 10/29/2022 HISTORY: 68-year-old female C37 f/u mediastinal/thyroid mass TECHNIQUE: Contiguous axial scanning of the chest without IV contrast. Coronal/sagittal reconstructio ns performed. CT DLP: 619mGycm. Automatic exposure control utilized for a dose reduction. FINDINGS: Heart normal size without pericardial effusion. However, there is unchanged thickening of the pericardium and substernal soft tissues anteriorly cruz uring up to 1 cm thick along the upper sternal body. Appearance is unchanged back to at least 11/14/19 22. The heart shows some subendocardial fat density at the apex of the heart. The thyroid gland within the visualized lower neck itself appears to be separate and within normal li mits. Borderline ectatic ascending aorta 3.6 cm. Mild atherosclerotic arch calcifications. Bovine configura tion to the aortic arch. Borderline ectatic upper descending thoracic aorta 3.0 cm. Mildly enlarged caliber main right and left pulmonary arteries up to 2.7 cm may reflect underlying pu lmonary hypertension. No thoracic lymphadenopathy by CT size criteria. Mild pleural thickening at the bilateral lung bases though with slight nodularity and associated nodu lar pleural calcifications at the left base. Subpleural nodularity measuring up tor 7 mm posterior left mid and lower lung is unchanged. Asymmetri c elevation left hemidiaphragm is unchanged. Mild diffuse bronchial wall thickening. Additional nodularity right mid lung measuring up to 6 mm is also unchanged back to at least 2. There is a small hiatal hernia and postsurgical changes seen gastrectomy. Cholecystectomy clips. Unch anged 8 mm cyst anterior mid liver. Bones: Anterior endplate spondylosis T11-T12. L1 vertebroplasty change. IMPRESSION: 1. Similar asymmetric elevation left hemidiaphragm with pleural calcifications and areas of smooth an d nodular pleural thickening at the left base. Correlate for chronic pleural parenchymal scarring and some tethering of the hemidiaphragm. If concern for hemidiaphragmatic paralysis, fluoroscopic sniff test can be considered. 2. Some additional chronic smooth pleural thickening/scarring at the right base. 3. Substernal soft tissue thickening and some anterior pericardial thickening remains unchanged back to 11/13/2021 suggesting sequela of prior inflammatory or traumatic etiology. Clinically correlate. 4. 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 There may be underlying pulmonary arterial hy pertension.
== END | disposition home or self-care (01) ==
LOC: RADCTMAIN 11:07
PROVIDERS: ATTEND Thoracic Surgery (Cardiothoracic Vascular Surgery)
DX: C37 Malignant neoplasm of thymus (principal); I25.2 Old myocardial infarction; J98.6 Disorders of diaphragm; J92.9 Pleural plaque without asbestos; I31.8 Other specified diseases of pericardium; J94.8 Other specified pleural conditions; M79.89 Other specified soft tissue disorders
CPT/HCPCS: 71250